=== PATIENT | male | born 1980 | race Two or more races ===

== ENCOUNTER 2024-10-05 17:52 | Inpatient (IN) | payer MEDICAID, SELFPAY ==
[2024-10-05] VITALS (8 sets, daily range): BP systolic 161–200; BP diastolic 89–122; PULSE 49–92; RESP 14–20; TEMP 35.9–36.6; O2SAT 80–100; BMI 25.0
--- NOTE | 2024-10-05 18:15 | EDNOTE_ITS ---
ED Abdominal Pain RME/HPI General Chief Complaint: Abdominal Pain Stated complaint: ABD PAIN Time seen by provider: 10/05/24 18:08 Arrival date/time: 10/05/24 17:52 Source: patient Mode of arrival: ambulatory Limitations: no limitations RME / HPI RME / HPI narrative: Dr. Anders?s Main ED Evaluation: A 44-year-old male with a history of seizures, atherosclerotic heart disease, myocardial infarction (ID), and asthma presents to the emergency department with complaints of right upper quadrant pain. The pain does not radiate to his back and worsens when he lies flat. The patient reports experiencing similar symptoms about a year ago and was told he had gallstones at that time. He denies any trauma or history of alcohol abuse. He describes the current pain as severe, rating it 9 out of 10. Related Data Previous Rx's ?Medication ?Instructions ?Recorded prednisone 50 mg tablet 50 mg PO QDAY #5 tabs Allergies Allergy/AdvReac Type Severity Reaction Status Date / Time Iodinated Contrast Media Allergy Severe Difficulty Verified 10/05/24 21:48 Breathing Review of Systems Review of Systems Systems Reviewed: All systems reviewed, normal except as documented Past Medical History Past Medical History NEUROLOGIC: Positive Seizures CARDIAC: Positive Cardiac Disorders, Myocardial Infarction and Atherosclerotic Heart Disease (Pt. has stents.); Negative Congestive Heart Failure RESPIRATORY: Positive Asthma; Negative Chronic Obstructive Pulmonary Disease (COPD) GENITOURINARY: Negative Renal Disease ENDOCRINE: Negative Diabetes Mellitus Type 1 or Diabetes Mellitus Type 2 Social History SMOKING STATUS: Never smoker ED Exam Narrative Physical exam: GENERAL APPEARANCE: alert and oriented x 4, well-developed, well-nourished, in moderate to severe pain distress VITALS: All vitals were reviewed and the pulse ox is 98% on room air, which is normal according to my interpretation. HEENT: Normocephalic, atraumatic; pupils equal, round, reactive to light; EOMI; mucous membranes pink, moist; oropharynx clear NECK: Supple LUNGS: CTABL; no wheezes, no rales, no rhonchi HEART: Regular rate, regular rhythm; normal S1, S2; no murmurs ABDOMEN: non distended; normal BS; soft, exquisitely tender on palpation of his upper abdomen with guarding, rebound and some rigidity; no masses, no organomegaly, no hernia BACK: no CVA tenderness EXTREMITIES: atraumatic; no edema NEUROLOGIC: awake; alert and oriented x4; cranial nerves II-XII grossly intact; no focal sensory or motor deficits PSYCHIATRIC: appropriate mood and affect SKIN: warm, dry, normal color; no rashes General Limitations: Present no limitations Course Quality Measures none Orders Category Date Time Status CT Screening NOW Care 10/05/24 21:15 Active Insert IV QSHIFT Care 10/05/24 19:54 Active MRI Screening NOW Care 10/06/24 00:[address] abdomen pelvis wo con Stat Exams 10/05/24 21:46 Completed MR MRCP Stat Exams 10/06/24 Ordered US gall bladder Stat Exams 10/05/24 19:54 Completed Alcohol, Blood Medical Stat Lab 10/05/24 18:48 Completed CBC Stat Lab 10/05/24 18:48 Completed CMP [Comprehensive Metabolic Panel] Stat Lab 10/05/24 18:48 Completed Drug Screen,Urine Stat Lab 10/05/24 19:57 Completed Lipase Stat Lab 10/05/24 18:48 Completed Lipid Panel Stat Lab 10/05/24 18:48 Completed UA [Urinalysis] Stat Lab 10/05/24 19:57 Completed Dextrose 5%-0.45% Ns [D5-1/2Ns] 1,000 ml Med 10/06/24 04:19 Active IV 165 mls/hr HYDROmorphone INJ [Dilaudid Inj] Med 10/05/24 21:15 Discontinued 1 mg IVP PRN HYDROmorphone INJ [Dilaudid Inj] Med 10/05/24 21:15 Active 1 mg IVP Q30MIN PRN Morphine Inj Med 10/05/24 19:55 Discontinued 5 mg IVP X1 ONE Ondansetron Inj [Zofran Inj] Med 10/05/24 19:55 Discontinued 4 mg IV X1 ONE Piper/Ez 4.5 gm [Zosyn] 100 ml Med 10/05/24 21:14 Discontinued IV X1 Piper/Tazo 3.375 gm [Zosyn] Med 10/05/24 21:31 Discontinued 3.375 gm in 50 ml IV X1 Sodium Chloride 0.9% 1000 ml [Ns] 1,000 ml Med 10/05/24 19:55 Discontinued IV 500 mls/hr Sodium Chloride 0.9% 1000 ml [Ns] 1,000 ml Med 10/05/24 21:08 Discontinued IV 999 mls/hr Sodium Chloride 0.9% 1000 ml [Ns] 1,000 ml Med 10/05/24 21:10 Discontinued IV 999 mls/hr hydrALAZINE INJ [Apresoline Inj] Med 10/05/24 22:22 Discontinued 10 mg IV X1 ONE Vital Signs Vital signs: Vital Signs Temperature 97.8 F 10/05/24 18:15 Pulse Rate 65 10/05/24 18:15 Respiratory Rate 18 10/05/24 18:15 Blood Pressure 162/89 H 10/05/24 18:15 Pulse Oximetry (%) 98 10/05/24 18:15 Oxygen Delivery Method Room Air 10/05/24 18:15 Abdominal Pain MDM MDM Narrative MDM Narrative:: Scribe Attestation: I, Pool Galan, am scribing for and in the presence of Dr. Anders. Provider Notation: Although this document has been carefully reviewed, there may still be some phonetic and other typographical errors. These errors are purely grammatical due to imperfections in the software program and should not be construed in any way to compromise the substance of the patient's medical care during this visit. Patient data External records reviewed:: [facility] previous records Clinical information provided by:: patient Social determinants that could affect healthcare access:: none Patient has the following chronic illnesses:: See PMH How is presenting disease/condition affected by chronic disease/condition?: uneffected by Evaluation data The following diagnostics were reviewed and interpreted by me:: lab results and radiology exam(s) Lab and/or radiology exams considered but not ordered:: None Interpretation Summary: I personally reviewed the radiology data and agree with the radiologist's interpretation. Examination: Abdomen sonogram, Limited Date and time of exam: October 05, 20244 hours INDICATIONS: Onset severe epigastric pain and nausea today Technique: Real-time allen scale transabdominal sonographic images of the upper abdomen obtained. Findings: Multiple gallstones Gallbladder wall 0.3 cm no edema Common bile duct 0.2 cm Pancreatic head 3.1 cm Liver 13.6 cm fatty infiltration no focal liver lesions Normal hepatopedal portal venous flow. Patent IVC. IMPRESSION: Cholelithiasis, negative for cholecystitis Dictated By: Brennan Eubanks MD Medications / Prescriptions Medications or Prescriptions considered but not ordered:: None Medication administrations:: Medication Administration History Hydromorphone HCl (Hydromorphone Inj 2 Mg/Ml Vial) 1 mg IVP Q30MIN PRN PRN Reason: PAIN Stop: 10/06/24 21:14 Last Admin: 10/06/24 05:10 Dose: 1 mg Documented By: Admin: 10/05/24 23:49 Dose: 1 mg Documented By: Admin: 10/05/24 23:12 Dose: 1 mg Documented By: Admin: 10/05/24 21:28 Dose: 1 mg Documented By: KATHERYN Dextrose/Sodium Chloride (D5-1/2ns) 1,000 mls @ 165 mls/hr IV .Q6H4M BRITTANY Stop: 11/05/24 04:18 Last Admin: 10/06/24 05:00 Dose: 165 mls/hr Documented By: ERIN Discontinued Medications Hydralazine HCl (Hydralazine Inj 20 Mg/Ml Vial) 10 mg IV X1 ONE Stop: 10/05/24 22:23 Last Admin: 10/05/24 22:28 Dose: 10 mg Documented By: KATHERYN Hydromorphone HCl (Hydromorphone Inj 2 Mg/Ml Vial) 1 mg IVP PRN BRITTANY Stop: 10/10/24 21:14 Sodium Chloride (Ns) 1,000 mls @ 500 mls/hr IV .Q2H ONE Stop: 10/05/24 21:54 Last Infusion: 10/05/24 22:33 Dose: Infused Documented By: Admin: 10/05/24 20:19 Dose: 500 mls/hr Documented By: Sodium Chloride (Ns) 1,000 mls @ 999 mls/hr IV .Q1H1M ONE Stop: 10/05/24 22:08 Last Infusion: 10/05/24 22:37 Dose: Infused Documented By: Admin: 10/05/24 21:14 Dose: 999 mls/hr Documented By: Sodium Chloride (Ns) 1,000 mls @ 999 mls/hr IV .Q1H1M ONE Stop: 10/05/24 22:10 Last Infusion: 10/05/24 23:57 Dose: Infused Documented By: Admin: 10/05/24 21:14 Dose: 999 mls/hr Documented By: Piperacillin/Tazobactam/Dextrose (Zosyn) 100 mls @ 200 mls/hr IV X1 ONE Stop: 10/05/24 21:43 Last Admin: 10/05/24 21:34 Dose: Not Given Documented By: Non-Admin Reason: Cancelled by Provider Piperacillin/Tazobactam/Dextrose (Zosyn) 3.375 gm in 50 mls @ 100 mls/hr IV X1 ONE Stop: 10/05/24 22:00 Last Infusion: 10/05/24 22:17 Dose: Infused Documented By: Admin: 10/05/24 21:33 Dose: 100 mls/hr Documented By: KATHERYN Morphine Sulfate (Morphine Sulf Inj 10 Mg/Ml Vial) 5 mg IVP X1 ONE Stop: 10/05/24 19:56 Last Admin: 10/05/24 20:16 Dose: 5 mg Documented By: KATHERYN Ondansetron HCl (Ondansetron Inj 2 Mg/Ml Inj 2 Ml) 4 mg IV X1 ONE; Protocol Stop: 10/05/24 19:56 Last Admin: 10/05/24 20:17 Dose: 4 mg Documented By: As above Consultations Consultation(s) initiated? (list below): Yes Consultation #1 (Physician, Specialty, Details): Discussed case with [the resident physician, attending Dr. Mederos] from Hospitalist service regarding admission. Discussed patients ED course, exam findings, labs, and radiology results.Requests a MRCP in the morning. Time: 00:00 Diagnosis Differential diagnosis abdominal pain: other (Gallstone pancreatitis, Pancreatitis, Cholecystitis, Choledocholithiasis, Gallstone ileus) Most likely diagnosis given after review of the tests above:: Methampetamine intoxication, Acute pancreatitis, likely gallstone pancreatitis Admission Indicated Admission indicated?: not indicated Admission Request Was there a request for admission?: No Disposition Plan Disposition Plan: other (specify) (Signed out to Dr. Salguero pending MRCP in the morning.) Discharge Plan Prescriptions/Referrals Prescriptions/Med Rec: No Action prednisone 50 mg tablet 50 mg PO QDAY Qty: 5 0RF Referrals: No Primary/Family,Physician [Primary Care Provider] - In 1 week Problem List Clinical Impression: Pancreatitis Patient/Caregiver Discharge Instructions Print Language: Frisian
--- NOTE | 2024-10-05 18:32 | EDRME_ITS ---
Rapid Medical Screening Exam [facility] Arrival date/time: 10/05/24 17:52 44M with history of drug use (though patient states he's had an MN before but is not on any meds because he ran out) presents to ED with several hours of epigastric pain. Dr. Anders?s Main ED Evaluation: Time Seen by Provider: 10/05/24 18:08 Vital signs: Vital Signs Temperature 97.8 F 10/05/24 18:15 Pulse Rate 65 10/05/24 18:15 Respiratory Rate 18 10/05/24 18:15 Blood Pressure 162/89 H 10/05/24 18:15 Pulse Oximetry (%) 98 10/05/24 18:15 Oxygen Delivery Method Room Air 10/05/24 18:15 [facility] Narrative: Dr. Anders?s Main ED Evaluation:
[2024-10-05 19:01] LABS: Basophils # (Auto) 0.1 Thou/mm3 (0.0-0.2); Basophils % (Auto) 1 % (0-2.5); Eosinophils # (Auto) 0.3 Thou/mm3 (0.0-0.5); Eosinophils % (Auto) 2 % (0-10); Hematocrit 52.2 % (41.0-53.0); Hemoglobin 17.8 g/dL (13.5-16.0); Immature Granulocytes % (Auto) 0 % (0-0); Immature Granulocytes Auto 0.06 Thou/mm3 (0.00-0.00); Lymphocytes # (Auto) 2.1 Thou/mm3 (1.0-4.8); Lymphocytes % (Auto) 13 % (10-50); Mean Corpuscular HGB Conc 34.1 g/dl (31.0-37.0); Mean Corpuscular Volume 85 fL (80-100); Monocytes # (Auto) 0.9 Thou/mm3 (0.0-0.8); Monocytes % (Auto) 5 % (0-12); Neutrophils # (Auto) 13.1 Thou/mm3 (1.8-7.7); Neutrophils % (Auto) 79 % (37-80); Nucleated Red Blood Cell % 0 /100 WBC (0); Platelet Count 335 Thou/mm3 (140-440); Red Blood Count 6.13 Miln/mm3 (4.50-5.90); White Blood Count 16.5 Thou/mm3 (3.8-10.6)
[2024-10-05 19:36] LABS: Alanine Aminotransferase 76 U/L (10-49); Albumin, Serum 4.7 gm/dL (3.5-5.0); Albumin/Globulin Ratio 1.5 (1.2-2.2); Alcohol, Blood Medical < 3.0 mg/dL (0-10.0); Alkaline Phosphatase 84 U/L (46-116); Anion Gap 7 (7-16); Aspartate Amino Transferase 131 U/L (0-34); BUN/Creatinine Ratio 14 Ratio (12-20); Bilirubin,Total 1.3 mg/dL (0.3-1.2); Blood Urea Nitrogen 14 mg/dL (9-23); Calcium 10.3 mg/dL (8.3-10.6); Calcium (Corrected) 10.3 mg/dL (8.5-10.1); Carbon Dioxide 29.1 mMol/L (20.0-31.0); Chloride 103 mMol/L (98-107); Estimated Creatinine Clearance 83.3 mL/min (>60); Globulin 3.2 gm/dL (2.3-3.5); Glucose 119 mg/dL (74-106); Lipase > 3500 U/L (12-53); Osmolality,Calculated 279 (275-295); Potassium 4.2 mMol/L (3.4-5.1); Sodium 139 mMol/L (136-145); Total Protein 7.9 gm/dL (5.7-8.2); eGFR > 60 See Note
--- NOTE | 2024-10-05 19:54 | XR_ITS ---
Examination: Abdomen sonogram, Limited Date and time of exam: October 05, 2024 2054 hours INDICATIONS: Onset severe epigastric pain and nausea today Technique: Real-time allen scale transabdominal sonographic images of the upper abdomen obtained. Findings: Multiple gallstones Gallbladder wall 0.3 cm no edema Common bile duct 0.2 cm Pancreatic head 3.1 cm Liver 13.6 cm fatty infiltration no focal liver lesions Normal hepatopedal portal venous flow. Patent IVC. IMPRESSION: Cholelithiasis, negative for cholecystitis
[2024-10-05] MEDS: MORPHINE SULF INJ 10 MG/ML VIAL 5 MG IVP (20:16)
[2024-10-05] MEDS: ONDANSETRON INJ 2 MG/ML INJ 2 ML 4 MG IV (20:17)
[2024-10-05] MEDS: SODIUM CHLORIDE 0.9% 1000 ML 1,000 ML 500 ML IV (20:19)
[2024-10-05 20:33] LABS: Cardiac Risk Estimate 4.7 RATIO (4.0-6.7); Cholesterol 261 mg/dL (132-200); HDL Cholesterol 56 mg/dL (40-60); LDL Cholesterol,Calculated 173 mg/dL (0-130); Triglycerides 159 mg/dL (30-150)
[2024-10-05 20:35] LABS: Collection Type, Urine Clean Catch; RBC,Urine 0 /hpf (0-3); WBC,Urine 0 /hpf (0-5)
[2024-10-05 21:05] LABS: Bacteria,Urine Rare; Bilirubin,Urine Negative (Negative); Blood,Urine Negative (Negative); Clarity,Urine Turbid (Clear/Hazy); Color,Urine Yellow (Lt Yel-Yel); Glucose, Urine Negative (Negative); Ketones,Urine Negative (Negative); Leukocyte Esterase,Urine Positive (Negative); Nitrite,Urine Negative (Negative); PH,Urine 6.5 (5.0-7.0); Protein,Urine Trace (Neg - Trace); Specific Gravity,Urine 1.027 (1.001-1.035); Squamous Epithelial Cell,Urine < 1 /hpf (0-5)
[2024-10-05 21:09] LABS: Amphetamine/Methamp Scrn,U Positive (Negative); Barbiturate Screen,Urine Negative (Negative); Benzodiazepines Screen,Urine Negative (Negative); Benzoylecgonine Screen, Ur Negative (Negative); Fentanyl Screen,Urine Negative (Negative); Opiate Screen,Urine Negative (Negative); THC Screen,Urine Positive (Negative)
[2024-10-05] MEDS: SODIUM CHLORIDE 0.9% 1000 ML 1,000 ML 999 ML IV ×2 (21:14)
[2024-10-05] MEDS: HYDROmorphone INJ 2 MG/ML VIAL 1 MG IVP ×3 (21:28→23:49)
[2024-10-05] MEDS: PIPER/TAZO 3.375 GM 3.375 GM/50 ML BAG IV (21:33)
--- NOTE | 2024-10-05 21:46 | XR_ITS ---
Examination: CT abdomen and pelvis without contrast. Coronal 3-D reconstructions. Sagittal 2-D reconstructions. Date and time of exam:October 05, 2024 at 0959 hours INDICATIONS: Transabdominal pain beginning 3 days ago CTDI: vol (mGy): 6.53 DLP: (mGycm): 382 Technique: Axial images of the abdomen have been obtained, 3 mm slice thickness Intravenous contrast material has not been administered. Low dose protocols were performed. One or more of the following dose reduction techniques were used; automated exposure control, adjustment of the mA and/or KV according to patient size, use of iterative reconstruction technique. Findings: No focal liver lesions Gallstones Spleen is not enlarged Diffuse edema surrounding the pancreas No renal or ureteral calculi, no hydronephrosis Aorta normal size No bowel obstruction Normal appendix No diverticulitis Urinary bladder are intact No prostatomegaly IMPRESSION: Cholelithiasis Severe acute pancreatitis, no pseudocyst
[2024-10-05] MEDS: hydrALAZINE INJ 20 MG/ML VIAL 10 MG IV (22:28)
[2024-10-06] VITALS (11 sets, daily range): BP systolic 129–169; BP diastolic 98–116; PULSE 68–102; RESP 14–19; TEMP 36.3–37.2; O2SAT 94–98; BMI 25.0
--- NOTE | 2024-10-06 04:50 | PC.NURSE ---
Dr. Anders in to talk to pt with regards to plan of care.
[2024-10-06] MEDS: DEXTROSE 5%-0.45% NS 1,000 ML 165 ML IV (05:00)
[2024-10-06] MEDS: HYDROmorphone INJ 2 MG/ML VIAL 1 MG IVP ×4 (05:10→16:15)
--- NOTE | 2024-10-06 08:54 | PC.NURSE ---
Attempted to complete MRI screening form when noticed piercing to left side of face under eye, patient states he is unable to remove piercing. Dr. Salguero made aware and discussed with patient options. Dr. Salguero with contact Dr. Valenzuela for possible admission due to not being able to complete MRI. Patient made aware of plan of care.
--- NOTE | 2024-10-06 10:03 | PC.NURSE ---
Patient sleeping at this time. Family remains at bedside. Will continue to monitor
--- NOTE | 2024-10-06 10:39 | EDNOTE_ITS ---
Emergency Room Addendum Addendum Narrative: 0600 care assumed by previous shift provider. Past medical, surgical, social and family history reviewed. Vitals and home medications reviewed. Results and treatment plan discussed. I will assume the care of the patient at this time and will follow the patient, pending final disposition. On my encounter patient notes diffuse upper abdominal pain that has improved significantly with treatment overnight. We reviewed his findings and indication for an MRCP given his elevated lipase levels. He does have several piercings and reviewed the piercing that he has over his left zygoma. There is a subcutaneous anchor where he would remain even if the outer stud was removed. This is approximately 2 cm inferior lateral to his left eye. Would recommend removal of the inner anchor prior to any MRCP as the burning that would come from magnetic's is also very close to his high and dangerous. He is nontoxic- appearing, relatively comfortable and sleeping on my encounter. I will review the case with GI specialty the benefits of removing the anchor versus observing with laboratory trending prior to the decision to do an MRI. 0800: Gastroenterology, Dr. Valenzuela, case was discussed at length, it feels given his symptoms and the laboratory findings, bili obstruction appears to be improving and he has more of an issue with pancreatitis. This is likely secondary to the passage of the stone as he is well-appearing. He recommends observing and trending laboratory overnight before deciding as to whether or not he will need an MRCP/ERCP at that point definitive management of his piercing anchor can be managed. If ERCP is needed, this can be done by Dr. Alexander as an inpatient. 0845: Hospitalist service, Dr. Truong, we reviewed case at length and they will review their raising concern as the patient has not had an MRCP done prior to admission. Patient is admitted to hospital service for further admission, trending of liver enzymes prior to decision as to whether or not he will require an MRCP/ERCP.
[2024-10-06 11:35] LABS: Basophils % (Auto) 0 % (0-2.5); Eosinophils % (Auto) 0 % (0-10); Hematocrit 50.1 % (41.0-53.0); Immature Granulocytes % (Auto) 1 % (0-0); Immature Granulocytes Auto 0.08 Thou/mm3 (0.00-0.00); Lymphocytes # (Auto) 1.1 Thou/mm3 (1.0-4.8); Lymphocytes % (Auto) 6 % (10-50); Mean Corpuscular HGB Conc 33.9 g/dl (31.0-37.0); Mean Corpuscular Hemoglobin 28.7 pg (25.0-35.0); Mean Corpuscular Volume 85 fL (80-100); Monocytes # (Auto) 0.9 Thou/mm3 (0.0-0.8); Monocytes % (Auto) 5 % (0-12); Neutrophils % (Auto) 88 % (37-80); Nucleated Red Blood Cell % 0 /100 WBC (0); Platelet Count 333 Thou/mm3 (140-440); RDW Standard Deviation 38.3 fL (35.1-43.9); Red Blood Count 5.93 Miln/mm3 (4.50-5.90); White Blood Count 17.1 Thou/mm3 (3.8-10.6)
[2024-10-06 12:03] LABS: Alanine Aminotransferase 290 U/L (10-49); Albumin, Serum 4.2 gm/dL (3.5-5.0); Albumin/Globulin Ratio 1.5 (1.2-2.2); Alkaline Phosphatase 98 U/L (46-116); Anion Gap 6 (7-16); Aspartate Amino Transferase 196 U/L (0-34); BUN/Creatinine Ratio 10 Ratio (12-20); Bilirubin,Total 1.8 mg/dL (0.3-1.2); Blood Urea Nitrogen 9 mg/dL (9-23); Calcium 8.9 mg/dL (8.3-10.6); Calcium (Corrected) 8.9 mg/dL (8.5-10.1); Carbon Dioxide 27.4 mMol/L (20.0-31.0); Chloride 103 mMol/L (98-107); Creatinine (Component) 0.9 mg/dL (0.6-1.3); Estimated Creatinine Clearance 92.5 mL/min (>60); Globulin 2.8 gm/dL (2.3-3.5); Glucose 109 mg/dL (74-106); Osmolality,Calculated 271 (275-295); Potassium 4.9 mMol/L (3.4-5.1); Sodium 136 mMol/L (136-145); eGFR > 60 See Note
[2024-10-06] MEDS: cefTRIAXone/D5w 1gm IV premix 50 ML IV (13:24)
[2024-10-06] MEDS: PANTOPRAZOLE INJ 40 MG VIAL IVP (13:24)
[2024-10-06] MEDS: SODIUM CHLORIDE 0.9% 1000 ML 1,000 ML 200 ML IV (13:54)
--- NOTE | 2024-10-06 15:49 | ESHP_ITS ---
<Statement entered by Alexx Mansfield MD - 10/12/24 15:57> I reviewed above note and agree with findings and plans. I have also personally examined the patient with medicine team and went over assessment and plan with medical team including consultants intern and resident physician. Documentation for date of: 10/06/24 HPI History of Present Illness History of present illness: The patient is a 44-year-old male with a past medical history of myocardial infarction presenting to the ED on 10/05/2024 with abdominal pain. Per the patient, having pain for about 2 days prior to presentation, located in the epigastric and right upper quadrant does not radiate to the back but worsens when he is in supine position. He rates the pain 9 on a severity scale of 10. He denies fever but does endorse nausea constipation or diarrhea. He reports that he has a good appetite and that he has been in pain and has been able to tolerate a diet. Patient reports that he has had a similar attack of pain about a year ago after which she was told that he had gallstones. Pain is not associated with meal intake and he had no abdominal trauma. ED course: In the ED, patient was noted to be in severe pain however afebrile tachycardic. Labs were significant for leukocytosis with WBC of 16.5 hypercalcemia of 10.3 T. bili of 1.3 (down from 2.9 about 3 months ago) transaminitis, triglycerides of 159 and lipase of greater than 3500. A gallbladder ultrasound was done which showed cholelithiasis was negative for cholecystitis and CBD of 0.[address] abdomen pelvis showed severe acute pancreatitis with no pseudocyst. In the ED, GI Dr. Valenzuela was consulted and recommended for the patient to be admitted for management of acute pancreatitis as it was unlikely to be biliary tract obstruction but if there was, Dr. Alexander will be available for an ERCP to be done as the patient could not have an MRCP due to piercings. Repeat labs prior to admission showed uptrending WBC as well as bilirubin and transaminases. The patient received a total of 3 L of fluids in the ED as well as pain medication and IV Zosyn. PMHx-[place], 1 episode of seizure PSHx-none Social history - social drinker, non-smoker Review of Systems Review of Systems Narrative Review of Systems: GENERAL: Denies fevers/chills or diaphoresis. HEENT: Denies headache or visual/hearing changes. Denies nasal discharge. NEURO: Denies unusual weakness or difficulty speaking. CARDIO: Denies chest pain or palpitations. PULM: Denies SOB, coughing, or wheezing. GI: Admits abdominal pain and nausea. Denies vomiting, constipation or diarrhea. URO: Denies burning/itching/pain/urinary changes. MSK/EXT/SKIN: Denies joint/skeletal/muscle pain, issues/changes in upper or lower extremities, itchiness, or superficial pain. PSYCH: Cooperative, pleasant mood & affect. Past Medical History Past Medical History NEUROLOGIC: Positive Seizures CARDIAC: Positive Cardiac Disorders, Myocardial Infarction and Atherosclerotic Heart Disease (Pt. 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 Eyes open, symmetrical, & clear CARDIO: No chest pain on palpation. Heart RRR, no obvious murmurs PULM: No noted coughing/dyspnea. Lungs CTA B/L GI: Abdomen soft, nondistended, tenderness to palpation worse in the epigastric region, mild RUQ. URO/GILL BOX TENDER:: No further abnormalities noted. SKIN/MSK/EXT: No wounds/rashes/edema/amputations, no pain on palpation. Pedal pulses present B/L Results: Labs 10/06/24 11:20 10/06/24 11:20 Labs: Short CBC 10/05/24 10/06/24 Range/Units 18:48 11:20 WBC 16.5 H 17.1 H (3.8-10.6) Thou/mm3 Hgb 17.8 H* 17.0 H (13.5-16.0) g/dL Hct 52.2 50.1 (41.0-53.0) % Plt Count 335 333 (140-440) Thou/mm3 [facility] 10/05/24 10/06/24 18:48 11:20 Sodium 139 136 Potassium 4.2 4.9 D Chloride 103 103 Carbon Dioxide 29.1 27.4 BUN 14 9 Creatinine 1.0 0.9 Glucose 119 H 109 H Calcium 10.3 8.9 Liver Function 10/05/24 10/06/24 Range/Units 18:48 11:20 Total Bilirubin 1.3 H 1.8 H D (0.3-1.2) mg/dL AST 131 H 196 H (0-34) U/L ALT 76 H 290 H (10-49) U/L Alkaline Phosphatase 84 98 (46-116) U/L Albumin 4.7 4.2 D (3.5-5.0) gm/dL Urine 10/05/24 Range/Units 19:57 Urine Color Yellow (Lt Yel-Yel) Urine Clarity Turbid A (Clear/Hazy) Urine pH 6.5 (5.0-7.0) Ur Specific [place] 1.027 (1.001-1.035) Urine Protein Trace (Neg - Trace) Urine Glucose (UA) Negative (Negative) Quality Measures Quality Measures none Medications Home Medications and Allergies Allergies Allergy/AdvReac Type Severity Reaction Status Date / Time Iodinated Contrast Media Allergy Severe Difficulty Verified 10/05/24 21:48 Breathing Visit Medications Acetaminophen (Acetaminophen 325 Mg Tablet) 650 mg PO Q6H PRN PRN Reason: Pain 1-3 or Fever >100.3 Stop: 11/05/24 12:26 Hydrocodone Bitart/Acetaminophen (Hydrocodone/Apap 5/325 Tablet) 1 tab PO Q6HR PRN PRN Reason: Pain 4-6 Stop: 10/11/24 12:38 Heparin Sodium (Porcine) (Heparin Sod Inj 5000 Unit/Ml Vial) 5,000 unit SC Q12HR BRITTANY Stop: 10/20/24 20:59 Sodium Chloride (Ns) 1,000 mls @ 200 mls/hr IV .Q5H BRITTANY Stop: 11/05/24 12:29 Last Admin: 10/06/24 13:54 Dose: 200 mls/hr Ceftriaxone Sodium/Dextrose (Rocephin/D5w 1gm Iv Premix) 50 mls @ 100 mls/hr IV QDAY BRITTANY Stop: 10/13/24 12:37 Last Infusion: 10/06/24 13:59 Dose: Infused Morphine Sulfate (Morphine Sulf Inj 10 Mg/Ml Vial) 2 mg IVP Q6HR PRN PRN Reason: PAIN SCALE 7-10 (Severe Ondansetron HCl (Ondansetron Inj 2 Mg/Ml Inj 2 Ml) 4 mg IV Q6H PRN; Protocol PRN Reason: NAUSEA OR VOMITING Stop: 11/05/24 12:26 Pantoprazole Sodium (Pantoprazole Inj 40 Mg Vial) 40 mg IVP QDAY [facility] Stop: 11/05/24 12:44 Last Admin: 10/06/24 13:24 Dose: 40 mg Sennosides (Senna Tablet) 1 tab PO QDAY [facility]; Protocol Stop: 11/06/24 08:59 Discontinued Medications Heparin Sodium (Porcine) (Heparin Sod Inj 5000 Unit/Ml Vial) 5,000 unit SC Q8HR [facility] Stop: 10/20/24 13:59 Hydralazine HCl (Hydralazine Inj 20 Mg/Ml Vial) 10 mg IV X1 ONE Stop: 10/05/24 22:23 Last Admin: 10/05/24 22:28 Dose: 10 mg Hydromorphone HCl (Hydromorphone Inj 2 Mg/Ml Vial) 1 mg IVP PRN BRITTANY Stop: 10/10/24 21:14 Last Admin: 10/06/24 10:30 Dose: 1 mg Hydromorphone HCl (Hydromorphone Inj 2 Mg/Ml Vial) 1 mg IVP Q30MIN PRN PRN Reason: PAIN Stop: 10/06/24 21:14 Last Admin: 10/06/24 06:18 Dose: 1 mg Hydromorphone HCl (Hydromorphone Inj 2 Mg/Ml Vial) 1 mg IVP X1 ONE Stop: 10/06/24 15:12 Sodium Chloride (Ns) 1,000 mls @ 500 mls/hr IV .Q2H ONE Stop: 10/05/24 21:54 Last Infusion: 10/05/24 22:33 Dose: Infused Sodium Chloride (Ns) 1,000 mls @ 999 mls/hr IV .Q1H1M ONE Stop: 10/05/24 22:08 Last Infusion: 10/05/24 22:37 Dose: Infused Sodium Chloride (Ns) 1,000 mls @ 999 mls/hr IV .Q1H1M ONE Stop: 10/05/24 22:10 Last Infusion: 10/05/24 23:57 Dose: Infused Piperacillin/Tazobactam/Dextrose (Zosyn) 100 mls @ 200 mls/hr IV X1 ONE Stop: 10/05/24 21:43 Last Admin: 10/05/24 21:34 Dose: Not Given Piperacillin/Tazobactam/Dextrose (Zosyn) 3.375 gm in 50 mls @ 100 mls/hr IV X1 ONE Stop: 10/05/24 22:00 Last Infusion: 10/05/24 22:17 Dose: Infused Dextrose/Sodium Chloride (D5-1/2ns) 1,000 mls @ 165 mls/hr IV .Q6H4M BRITTANY Stop: 11/05/24 04:18 Last Infusion: 10/06/24 10:29 Dose: Infused Morphine Sulfate (Morphine Sulf Inj 10 Mg/Ml Vial) 5 mg IVP X1 ONE Stop: 10/05/24 19:56 Last Admin: 10/05/24 20:16 Dose: 5 mg Ondansetron HCl (Ondansetron Inj 2 Mg/Ml Inj 2 Ml) 4 mg IV X1 ONE; Protocol Stop: 10/05/24 19:56 Last Admin: 10/05/24 20:17 Dose: 4 mg Assessment & Plan Assessment Summary: The patient is a 44-year-old female with a past medical history of myocardial infarction and gallstones presented to the ED on 10/05/2024 with plaints of abdominal pain. He has been admitted for management of acute pancreatitis. #Acute gallstone pancreatitis #Cholelithiasis #Transaminitis The patient presented with a 2-day history of abdominal pain located in the epigastric and right upper quadrant, rated as a 9/10 in severity, nonradiating to the back but a little worse when lying in supine position. He denies any association with meals any new medications or any trauma to the abdominal region. Patient also denies fever, but endorses nausea, no vomiting diarrhea or constipation. In the ED, he was afebrile but tachycardic. Labs showed hyperbilirubinemia of 1.3, down trended from 3 in the last 3 months as well as leukocytosis with WBC of 16 elevated transaminases but normal ALP and lipase >3500. CT abdomen showed severe acute pancreatitis and no pseudocyst. Initial plan was for an MRCP to be acquired breast patient has piercings is impossible to do and ERCP was considered. Discussed with ED doctor and GI Dr. Valenzuela extensively, recommends to admit the patient for acute pancreatitis and the patient should require ERCP, Dr. Alexander will be available for procedure. Plan: -Clear liquid diet as patient can tolerate -IV fluids NS at 200 cc/h -IV ceftriaxone -Pain management with Tylenol, [place] and morphine -GI consulted in ED, appreciate recommendations Health maintenance: Dispo: MedSurg Diet: Clear liquid GI: Pantoprazole DVT: SC Heparin Lines: Peripheral PT: Not ordered Code: Full Case was discussed with attending physician, Dr Shyla Truong MD PGY-1
--- NOTE | 2024-10-06 16:00 | PD.IMCONS ---
HPI Data of Consult Requesting Physician: Alexx Mansfield MD Primary Care Provider: Physician No Primary/Family Consult Narrative Reason for consult: Severe abdominal pain elevated lipase greater than 3500 abnormal LFTs History of present illness: 44 years old male comes in for evaluation to the emergency room with severe abdominal pain Lipase greater than 3500 Total bilirubin 1.3 AST ALT 131 and 76 and alk phos of 84 Gallbladder ultrasound shows multiple stones in the gallbladder CBD is [address] scan of the abdomen pelvis done with contrast shows cholelithiasis and diffuse edema of the pancreas no dilatation of the common bile duct MRCP could not be done because of metal's as a part of his living style cc:: cc: Alexx Mansfield MD Review of Systems Review of Systems Systems Reviewed: All systems reviewed, normal except as documented Past Medical History Surgical History OTHER SURGICAL HX: As in the history of present illness Meds Home Medications and Allergies Allergies Allergy/AdvReac Type Severity Reaction Status Date / Time Iodinated Contrast Media Allergy Severe Difficulty Verified 10/05/24 21:48 Breathing Exam Vital Signs Temp Pulse Resp BP Pulse Ox O2 Del Method O2 Flow Rate 97.8 F 88 14 148/98 H 96 Room Air 2 10/06/24 13:09 10/06/24 15:10 10/06/24 15:10 10/06/24 15:10 10/06/24 15:10 10/06/24 15:10 10/05/24 22:34 Constitutional Comments: Alert oriented and in pain Routine Respiratory Exam Comments: Normal to auscultation Routine Abdominal Exam Comments: Midepigastric right upper quadrant tenderness Results Labs 10/06/24 11:20 10/06/24 11:20 Labs: Short CBC 10/05/24 10/06/24 Range/Units 18:48 11:20 WBC 16.5 H 17.1 H (3.8-10.6) Thou/mm3 Hgb 17.8 H* 17.0 H (13.5-16.0) g/dL Hct 52.2 50.1 (41.0-53.0) % Plt Count 335 333 (140-440) Thou/mm3 BMP 10/05/24 10/06/24 18:48 11:20 Sodium 139 136 Potassium 4.2 4.9 D Chloride 103 103 Carbon Dioxide 29.1 27.4 BUN 14 9 Creatinine 1.0 0.9 Glucose 119 H 109 H Calcium 10.3 8.9 Liver Function 10/05/24 10/06/24 Range/Units 18:48 11:20 Total Bilirubin 1.3 H 1.8 H D (0.3-1.2) mg/dL AST 131 H 196 H (0-34) U/L ALT 76 H 290 H (10-49) U/L Alkaline Phosphatase 84 98 (46-116) U/L Albumin 4.7 4.2 D (3.5-5.0) gm/dL Urine 10/05/24 Range/Units 19:57 Urine Color Yellow (Lt Yel-Yel) Urine Clarity Turbid A (Clear/Hazy) Urine pH 6.5 (5.0-7.0) Ur Specific [place] 1.027 (1.001-1.035) Urine Protein Trace (Neg - Trace) Urine Glucose (UA) Negative (Negative) Assessment and Plan Additional Assessment & Plan Additional Plan: # Acute biliary pancreatitis # No evidence at the moment of choledocholithiasis # Abnormal LFTs improving and most likely due to the edema of the head of the pancreas and not choledocholithiasis as a CBD is normal sized Plan Admit the patient as an inpatient Surgical consultation for once the pancreatitis is decompressed and labs normalize Laparoscopic versus open cholecystectomy with intraoperative cholangiogram If the cholangiogram is positive we can always do an postoperative ERCP and I will speak to Dr. Alexander about that Patient does not need a preoperative ERCP for laparoscopic versus open cholecystectomy in this clinical presentation Effective pain control IV fluids Keep patient n.p.o. Thank you very much for the opportunity to participate in the care of this patient
[2024-10-06] MEDS: MORPHINE SULF INJ 10 MG/ML VIAL 2 MG IVP (20:01)
[2024-10-06] MEDS: ONDANSETRON INJ 2 MG/ML INJ 2 ML 4 MG IV (20:01)
[2024-10-06] MEDS: HEPARIN SOD INJ 5000 UNIT/ML VIAL SC (20:02)
[2024-10-06] MEDS: SODIUM CHLORIDE 0.9% 1000 ML 1,000 ML 250 ML IV (20:07)
[2024-10-06] MEDS: HYDROcodone/APAP 5/325 TABLET 1 TAB PO (21:35)
[2024-10-07] VITALS (7 sets, daily range): BP systolic 151–169; BP diastolic 106–118; PULSE 93–109; RESP 16–18; TEMP 36.1–37.1; O2SAT 94–96
[2024-10-07] MEDS: SODIUM CHLORIDE 0.9% 1000 ML 1,000 ML 250 ML IV ×6 (00:08→23:53)
--- NOTE | 2024-10-07 00:26 | PC.NURSE ---
MD Vasques made aware that pt still having abdominal pain and BP is elevated at 160/106, HR 106, per MD will put pain meds and will carried out.
[2024-10-07] MEDS: MORPHINE SULF INJ 10 MG/ML VIAL 2 MG IVP ×2 (00:31→04:10)
[2024-10-07 06:09] LABS: Basophils # (Auto) 0.1 Thou/mm3 (0.0-0.2); Basophils % (Auto) 0 % (0-2.5); Eosinophils % (Auto) 0 % (0-10); Hematocrit 46.2 % (41.0-53.0); Hemoglobin 15.6 g/dL (13.5-16.0); Immature Granulocytes % (Auto) 1 % (0-0); Lymphocytes # (Auto) 1.1 Thou/mm3 (1.0-4.8); Lymphocytes % (Auto) 6 % (10-50); Mean Corpuscular HGB Conc 33.8 g/dl (31.0-37.0); Mean Corpuscular Hemoglobin 29.2 pg (25.0-35.0); Mean Corpuscular Volume 86 fL (80-100); Monocytes % (Auto) 5 % (0-12); Neutrophils % (Auto) 88 % (37-80); Nucleated Red Blood Cell % 0 /100 WBC (0); Platelet Count 283 Thou/mm3 (140-440); RDW Standard Deviation 38.7 fL (35.1-43.9); Red Blood Count 5.35 Miln/mm3 (4.50-5.90); White Blood Count 19.2 Thou/mm3 (3.8-10.6)
[2024-10-07 06:34] LABS: Alanine Aminotransferase 170 U/L (10-49); Albumin, Serum 3.9 gm/dL (3.5-5.0); Albumin/Globulin Ratio 1.5 (1.2-2.2); Alkaline Phosphatase 98 U/L (46-116); Anion Gap 9 (7-16); Aspartate Amino Transferase 70 U/L (0-34); BUN/Creatinine Ratio 10 Ratio (12-20); Bilirubin,Total 1.7 mg/dL (0.3-1.2); Blood Urea Nitrogen 7 mg/dL (9-23); Calcium 8.3 mg/dL (8.3-10.6); Calcium (Corrected) 8.4 mg/dL (8.5-10.1); Carbon Dioxide 22.3 mMol/L (20.0-31.0); Chloride 105 mMol/L (98-107); Creatinine (Component) 0.7 mg/dL (0.6-1.3); Globulin 2.6 gm/dL (2.3-3.5); Glucose 78 mg/dL (74-106); Magnesium 1.8 mg/dL (1.6-2.6); Osmolality,Calculated 268 (275-295); Phosphorous 1.6 mg/dL (2.4-5.1); Sodium 136 mMol/L (136-145); Total Protein 6.5 gm/dL (5.7-8.2); eGFR > 60 See Note
[2024-10-07] MEDS: HYDROcodone/APAP 5/325 TABLET 1 TAB PO (08:23)
[2024-10-07] MEDS: SENNA TABLET 1 TAB PO (08:23)
[2024-10-07] MEDS: cefTRIAXone/D5w 1gm IV premix 50 ML IV (08:24)
[2024-10-07] MEDS: NAPH,KPH MBDB 1 PACKET (1.5 GM) PO (08:24)
[2024-10-07] MEDS: PANTOPRAZOLE INJ 40 MG VIAL IVP (08:25)
[2024-10-07] MEDS: HEPARIN SOD INJ 5000 UNIT/ML VIAL SC ×2 (08:25→20:43)
[2024-10-07] MEDS: amLODIPine BESYLATE 5 MG TABLET 10 MG PO (11:56)
[2024-10-07] MEDS: MORPHINE SULF INJ 10 MG/ML VIAL 4 MG IVP ×2 (11:57→18:08)
--- NOTE | 2024-10-07 12:46 | ESPR_ITS ---
<Statement entered by Alexx Mansfield MD - 10/12/24 15:57> I reviewed above note and agree with findings and plans. I have also personally examined the patient with medicine team and went over assessment and plan with medical team including undergraduate intern and resident physician. Documentation for date of: 10/07/24 Subjective Subjective Interval history: Patient seen at bedside. Overnight was said to have had elevated blood pressure in 160s, suspected to be due to pain. Examined patient at bedside this morning, he still complains of pain that is worse when he eats even when he drinks water. He also mentions that he has been told that he was hypertensive in the past but has not used any medications. As patient is currently not tolerating oral intake, will make him n.p.o., continue IV fluids at 50 cc/h and optimize pain management. Will also consult surgery for possible cholecystectomy. As blood pressures remained elevated, will start him on antihypertensive amlodipine 10 mg daily. Labs reviewed,-uptrending WBC, downtrending transaminases. Will replete electrolytes accordingly. 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 Eyes open, symmetrical, & clear CARDIO: No chest pain on palpation. Heart RRR, no obvious murmurs PULM: No noted coughing/dyspnea. Lungs CTA B/L GI: Abdomen soft, nondistended, tenderness to palpation worse in the epigastric region, mild RUQ. 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 SKIN/MSK/EXT: No wounds/rashes/edema/amputations, no pain on palpation. Pedal pulses present B/L Objective Labs 10/07/24 04:57 10/07/24 04:57 Labs: Laboratory Results - last 24 hr 10/07/24 04:57 WBC 19.2 H RBC 5.35 Hgb 15.6 Hct 46.2 MCV 86 MCH 29.2 MCHC 33.8 RDW Std Deviation 38.7 Plt Count 283 D Neut % (Auto) 88 H Lymph % (Auto) 6 L [place] % (Auto) 5 Eos % (Auto) 0 Baso % (Auto) 0 Neut # (Auto) 17.0 H Lymph # (Auto) 1.1 [place] # (Auto) 1.0 H Eos # (Auto) 0.0 Baso # (Auto) 0.1 Immature Gran # (Auto) 0.10 H Absolute Nucleated RBC 0.00 Immature Gran % 1 H Nucleated RBC % 0 Sodium 136 Potassium 4.0 D Chloride 105 Carbon Dioxide 22.3 Anion Gap 9 BUN 7 L Creatinine 0.7 Estim Creat Clear Calc 119.0 eGFR > 60 BUN/Creatinine Ratio 10 L Glucose 78 Calculated Osmolality 268 L Calcium 8.3 Corrected Calcium 8.4 L Phosphorus 1.6 L Magnesium 1.8 Total Bilirubin 1.7 H AST 70 H ALT 170 H Alkaline Phosphatase 98 Total Protein 6.5 Albumin 3.9 Globulin 2.6 Albumin/Globulin Ratio 1.5 Quality Measures Quality Measures none Assessment & Plan Assessment Current Active Medications: Generic Name Dose Route Start Last Admin Trade Name Freq PRN Reason Stop Dose Admin Acetaminophen 650 mg 10/06/24 12:27 Acetaminophen 325 Mg Tablet PO 11/05/24 12:26 Q6H PRN Pain 1-3 or Fever >100.3 Hydrocodone Bitart/Acetaminophen 1 tab 10/06/24 12:39 10/07/24 08:23 Hydrocodone/Apap 5/325 Tablet PO 10/11/24 12:38 1 tab Q6HR PRN Administration Pain 4-6 Amlodipine Besylate 10 mg 10/07/24 10:45 10/07/24 11:56 Amlodipine Besylate 5 Mg Tablet PO 11/06/24 10:44 10 mg QDAY BRITTANY Administration Heparin Sodium (Porcine) 5,000 unit 10/06/24 21:00 10/07/24 08:25 Heparin Sod Inj 5000 Unit/Ml Vial SC 10/20/24 20:59 5,000 unit Q12HR BRITTANY Administration Hydromorphone HCl 1 mg 10/07/24 11:02 Hydromorphone Inj 2 Mg/Ml Vial IVP 10/12/24 09:53 Q4HR PRN BREAKTHROUGH PAIN (SEVERE) Ceftriaxone Sodium/Dextrose 50 mls @ 100 mls/hr 10/06/24 12:38 10/07/24 08:24 Rocephin/D5w 1gm Iv Premix IV 10/13/24 12:37 100 mls/hr QDAY BRITTANY Administration Sodium Chloride 1,000 mls @ 250 mls/hr 10/06/24 17:47 10/07/24 11:03 Ns IV 10/07/24 17:46 250 mls/hr .Q4H BRITTANY Administration Ondansetron HCl 4 mg 10/06/24 12:27 10/06/24 20:01 Ondansetron Inj 2 Mg/Ml Inj 2 Ml IV 11/05/24 12:26 4 mg Q6H PRN Administration NAUSEA OR VOMITING Protocol Pantoprazole Sodium 40 mg 10/06/24 12:45 10/07/24 08:25 Pantoprazole Inj 40 Mg Vial IVP 11/05/24 12:44 40 mg QDAY BRITTANY Administration Sennosides 1 tab 10/07/24 09:00 10/07/24 08:23 Senna Tablet PO 11/06/24 08:59 1 tab QDAY BRITTANY Administration Protocol Plan Summary: The patient is a 44-year-old female with a past medical history of myocardial infarction and gallstones presented to the ED on 10/05/2024 with plaints of abdominal pain. He has been admitted for management of acute pancreatitis. #Acute gallstone pancreatitis #Cholelithiasis #Transaminitis The patient presented with a 2-day history of abdominal pain located in the epigastric and right upper quadrant, rated as a 9/10 in severity, nonradiating to the back but a little worse when lying in supine position. He denies any association with meals any new medications or any trauma to the abdominal region. Patient also denies fever, but endorses nausea, no vomiting diarrhea or constipation. In the ED, he was afebrile but tachycardic. Labs showed hyperbilirubinemia of 1.3, down trended from 3 in the last 3 months as well as leukocytosis with WBC of 16 elevated transaminases but normal ALP and lipase >3500. CT abdomen showed severe acute pancreatitis and no pseudocyst. Initial plan was for an MRCP to be acquired breast patient has piercings is impossible to do and ERCP was considered. Discussed with ED doctor and GI Dr. Valenzuela extensively, recommends to admit the patient for acute pancreatitis and the patient should require ERCP, Dr. Alexander will be available for procedure. 10/07/2024-patient has been unable to tolerate clear liquid diets, still complains of 8 out of 10 pain even with water. Will make patient n.p.o. and continue IV fluid and pain management. Will also consult surgery for possible intervention. Plan: -N.p.o. -Continue IV fluids NS at 250 cc/h -Continue IV ceftriaxone -Pain management with [place], morphine and Dilaudid -Surgery consulted, appreciate recommendations #Hypertension Patient reports a history of hypertension, but has never been on any medications. Blood pressure on admission has been ranging between 150 and 160s. Plan: -Will start him on amlodipine 10 mg daily Health maintenance: Dispo: MedSurg Diet: Clear liquid GI: Pantoprazole DVT: SC Heparin Lines: Peripheral PT: Not ordered Code: Full
--- NOTE | 2024-10-07 13:20 | PC.SS ---
Rickie Worley is a 44-year-old male admitted to [facility] for Acute Pancreatitis. SS conducted bedside contact with the patient to complete initial assessment and to discuss discharge planning.? Patient confirmed demographic information. Patient identifies his mother Sherri Soto [phone] as his surrogate decision maker. Patient resides at home with his mom. Pt states he is able to complete all ADL?s independently, no need for any source of DME. Pts does not possess a PCP and is not interested at this time. DC option discussed and pt wishes to return home. Pts family will provide transportation upon DC. No further intervention required at this time, director social would be available to address any further concerns. DC Plan: Home Contact: Sherri Soto [phone] PCP: [facility]
--- NOTE | 2024-10-07 16:43 | PD.IMPROG ---
Documentation for date of: 10/07/24 Subjective Subjective Interval history: Patient evaluated WBC count has gone slightly up to 19.2 but the hemoconcentration is getting better Hemoglobin hematocrit has improved to 15.6 and 46.2 with loss of hydration LFTs are improving to 1.7 total bilirubin AST ALT 7170 and alk phos of 98 Exam Vital Signs Temp Pulse Resp BP Pulse Ox O2 Del Method O2 Flow Rate 98.8 F 95 18 151/118 H 96 Room Air 2 10/07/24 12:00 10/07/24 12:00 10/07/24 12:00 10/07/24 12:00 10/07/24 12:00 10/07/24 12:00 10/05/24 22:34 Objective Labs 10/07/24 04:57 10/07/24 04:57 Labs: Laboratory Results - last 24 hr 10/07/24 04:57 WBC 19.2 H RBC 5.35 Hgb 15.6 Hct 46.2 MCV 86 MCH 29.2 MCHC 33.8 RDW Std Deviation 38.7 Plt Count 283 D Neut % (Auto) 88 H Lymph % (Auto) 6 L [place] % (Auto) 5 Eos % (Auto) 0 Baso % (Auto) 0 Neut # (Auto) 17.0 H Lymph # (Auto) 1.1 [place] # (Auto) 1.0 H Eos # (Auto) 0.0 Baso # (Auto) 0.1 Immature Gran # (Auto) 0.10 H Absolute Nucleated RBC 0.00 Immature Gran % 1 H Nucleated RBC % 0 Sodium 136 Potassium 4.0 D Chloride 105 Carbon Dioxide 22.3 Anion Gap 9 BUN 7 L Creatinine 0.7 Estim Creat Clear Calc 119.0 eGFR > 60 BUN/Creatinine Ratio 10 L Glucose 78 Calculated Osmolality 268 L Calcium 8.3 Corrected Calcium 8.4 L Phosphorus 1.6 L Magnesium 1.8 Total Bilirubin 1.7 H AST 70 H ALT 170 H Alkaline Phosphatase 98 Total Protein 6.5 Albumin 3.9 Globulin 2.6 Albumin/Globulin Ratio 1.5 Impressions Impression: # Gallstone pancreatitis # no evidence of choledocholithiasis continue current management Assessment & Plan A&P Narrative # Acute biliary pancreatitis # No evidence at the moment of choledocholithiasis # Abnormal LFTs improving and most likely due to the edema of the head of the pancreas and not choledocholithiasis as a CBD is normal sized Plan Admit the patient as an inpatient Surgical consultation for once the pancreatitis is decompressed and labs normalize Laparoscopic versus open cholecystectomy with intraoperative cholangiogram If the cholangiogram is positive we can always do an postoperative ERCP and I will speak to Dr. Alexander about that Patient does not need a preoperative ERCP for laparoscopic versus open cholecystectomy in this clinical presentation Effective pain control IV fluids Keep patient n.p.o. Thank you very much for the opportunity to participate in the care of this patient Time Spent With Patient Time: Total time spent is greater than 50% in coordination of care (as documented) at patient's floor/unit and/or counseling patient:
[2024-10-07 17:12] LABS: Amylase 378 U/L (30-118)
[2024-10-07] MEDS: ACETAMINOPHEN 325 MG TABLET 650 MG PO (20:42)
[2024-10-07] MEDS: HYDROmorphone INJ 2 MG/ML VIAL 1 MG IVP (23:53)
[2024-10-08] VITALS (7 sets, daily range): BP systolic 139–151; BP diastolic 75–101; PULSE 63–104; RESP 15–21; TEMP 36.2–43.5; O2SAT 93–96; BMI 24.9
[2024-10-08] MEDS: SODIUM CHLORIDE 0.9% 1000 ML 1,000 ML 250 ML IV ×4 (03:55→22:11)
[2024-10-08 06:17] LABS: Basophils # (Auto) 0.1 Thou/mm3 (0.0-0.2); Basophils % (Auto) 0 % (0-2.5); Eosinophils # (Auto) 0.1 Thou/mm3 (0.0-0.5); Eosinophils % (Auto) 1 % (0-10); Hematocrit 44.9 % (41.0-53.0); Hemoglobin 15.1 g/dL (13.5-16.0); Immature Granulocytes % (Auto) 0 % (0-0); Immature Granulocytes Auto 0.06 Thou/mm3 (0.00-0.00); Lymphocytes # (Auto) 1.8 Thou/mm3 (1.0-4.8); Lymphocytes % (Auto) 12 % (10-50); Mean Corpuscular HGB Conc 33.6 g/dl (31.0-37.0); Mean Corpuscular Hemoglobin 28.1 pg (25.0-35.0); Mean Corpuscular Volume 84 fL (80-100); Monocytes % (Auto) 7 % (0-12); Neutrophils # (Auto) 12.2 Thou/mm3 (1.8-7.7); Neutrophils % (Auto) 80 % (37-80); Nucleated Red Blood Cell % 0 /100 WBC (0); Platelet Count 265 Thou/mm3 (140-440); RDW Standard Deviation 37.3 fL (35.1-43.9); Red Blood Count 5.37 Miln/mm3 (4.50-5.90); White Blood Count 15.2 Thou/mm3 (3.8-10.6)
[2024-10-08] MEDS: MORPHINE SULF INJ 10 MG/ML VIAL 4 MG IVP ×3 (06:19→18:30)
[2024-10-08] MEDS: ACETAMINOPHEN 325 MG TABLET 650 MG PO (06:24)
[2024-10-08 06:55] LABS: Alanine Aminotransferase 107 U/L (10-49); Albumin, Serum 3.8 gm/dL (3.5-5.0); Albumin/Globulin Ratio 1.4 (1.2-2.2); Alkaline Phosphatase 96 U/L (46-116); Anion Gap 9 (7-16); Aspartate Amino Transferase 33 U/L (0-34); BUN/Creatinine Ratio 12 Ratio (12-20); Bilirubin,Total 1.3 mg/dL (0.3-1.2); Blood Urea Nitrogen 7 mg/dL (9-23); Calcium 8.8 mg/dL (8.3-10.6); Carbon Dioxide 22.8 mMol/L (20.0-31.0); Chloride 105 mMol/L (98-107); Creatinine (Component) 0.6 mg/dL (0.6-1.3); Estimated Creatinine Clearance 138.8 mL/min (>60); Globulin 2.8 gm/dL (2.3-3.5); Glucose 81 mg/dL (74-106); Magnesium 1.9 mg/dL (1.6-2.6); Osmolality,Calculated 270 (275-295); Potassium 3.7 mMol/L (3.4-5.1); Sodium 137 mMol/L (136-145); Total Protein 6.6 gm/dL (5.7-8.2); eGFR > 60 See Note
[2024-10-08 07:33] LABS: Phosphorous 0.8 mg/dL (2.4-5.1)
[2024-10-08] MEDS: SENNA TABLET 1 TAB PO (08:53)
[2024-10-08] MEDS: NAPH,KPH MBDB 1 PACKET (1.5 GM) 2 PACKET PO (08:54)
[2024-10-08] MEDS: amLODIPine BESYLATE 5 MG TABLET 10 MG PO (08:54)
[2024-10-08] MEDS: PANTOPRAZOLE INJ 40 MG VIAL IVP (08:55)
[2024-10-08] MEDS: Magnesium Sulfate 2 GM Ivpb 2 GM/50 ML BAG IV (08:55)
[2024-10-08] MEDS: cefTRIAXone/D5w 1gm IV premix 50 ML IV (08:55)
[2024-10-08] MEDS: HEPARIN SOD INJ 5000 UNIT/ML VIAL SC ×2 (08:56→20:51)
[2024-10-08] MEDS: POTASSIUM PHOS 22.5 MMOL in SODIUM CHLORIDE 0.9% 500 ML 500 ML 82.778 MMOL IV (10:15)
--- NOTE | 2024-10-08 15:48 | ESPR_ITS ---
<Statement entered by Alexx Mansfield MD - 10/16/24 11:48> I reviewed above note and agree with findings and plans. I have also personally examined the patient with medicine team and went over assessment and plan with medical team including international relations professor and resident physician. Documentation for date of: 10/08/24 Subjective Subjective Interval history: Patient was seen and examined at bedside. No acute overnight events. Patient reports his pain significantly improved. He was able to tolerate clear liquid diet in the morning, also endorsed he wants to transition to more solid food. Will continue IV fluids. Electrolytes were repleted. Will continue current management and monitor patient. Exam Vital Signs Temp Pulse Resp BP Pulse Ox O2 Del Method O2 Flow Rate 99.3 F 95 17 147/93 H 96 Room Air 2 10/08/24 12:00 10/08/24 12:10/08/24 12:10/08/24 12:00 10/08/24 12:00 10/08/24 12:00 10/05/24 22:34 Narrative Exam Gen: Well-developed and well-nourished male. HEENT: NCAT, PERRLA, EOMI, MMM, anicteric conjunctivae. CVS: normal S1 and S2. RRR. No M/R/G. Resp: CTA B/L. No rhonchi, rales, crackles or wheezing. Abd: soft, tender in upper quadrants, non-distended. BS+ in all 4 quadrants. MSK: Good ROM in BUE & BLE. No edema or rash. Neuro: CN II-XII grossly intact. Strength 5/5 in BUE & BLE. Alert and oriented x3. Psych: appropriate mood and affect. Objective Labs 10/08/24 05:04 10/08/24 05:04 Labs: Laboratory Results - last 24 hr 10/07/24 10/08/24 04:57 05:04 WBC 15.2 H RBC 5.37 Hgb 15.1 Hct 44.9 MCV 84 MCH 28.1 MCHC 33.6 RDW Std Deviation 37.3 Plt Count 265 Neut % (Auto) 80 Lymph % (Auto) 12 [place] % (Auto) 7 Eos % (Auto) 1 Baso % (Auto) 0 Neut # (Auto) 12.2 H Lymph # (Auto) 1.8 [place] # (Auto) 1.0 H Eos # (Auto) 0.1 Baso # (Auto) 0.1 Immature Gran # (Auto) 0.06 H Absolute Nucleated RBC 0.00 Immature Gran % 0 Nucleated RBC % 0 Sodium 137 Potassium 3.7 Chloride 105 Carbon Dioxide 22.8 Anion Gap 9 BUN 7 L Creatinine 0.6 Estim Creat Clear Calc 138.8 eGFR > 60 BUN/Creatinine Ratio 12 Glucose 81 Calculated Osmolality 270 L Calcium 8.8 Corrected Calcium 9.0 Phosphorus 0.8 L* Magnesium 1.9 Total Bilirubin 1.3 H AST 33 ALT 107 H Alkaline Phosphatase 96 Total Protein 6.6 Albumin 3.8 Globulin 2.8 Albumin/Globulin Ratio 1.4 Amylase 378 H Quality Measures Quality Measures none Assessment & Plan Assessment Current Active Medications: Generic Name Dose Route Start Last Admin Trade Name Freq PRN Reason Stop Dose Admin Acetaminophen 650 mg 10/06/24 12:27 10/08/24 06:24 Acetaminophen 325 Mg Tablet PO 11/05/24 12:26 650 mg Q6H PRN Administration Pain 1-3 or Fever >100.3 Amlodipine Besylate 10 mg 10/07/24 10:45 10/08/24 08:54 Amlodipine Besylate 5 Mg Tablet PO 11/06/24 10:44 10 mg QDAY BRITTANY Administration Heparin Sodium (Porcine) 5,000 unit 10/06/24 21:00 10/08/24 08:56 Heparin Sod Inj 5000 Unit/Ml Vial SC 10/20/24 20:59 5,000 unit Q12HR BRITTANY Administration Hydromorphone HCl 1 mg 10/07/24 11:02 10/07/24 23:53 Hydromorphone Inj 2 Mg/Ml Vial IVP 10/12/24 09:53 1 mg Q4HR PRN Administration BREAKTHROUGH PAIN (SEVERE) Ceftriaxone Sodium/Dextrose 50 mls @ 100 mls/hr 10/06/24 12:38 10/08/24 10:00 Rocephin/D5w 1gm Iv Premix IV 10/13/24 12:37 Infused QDAY BRITTANY Infusion Sodium Chloride 1,000 mls @ 250 mls/hr 10/08/24 11:05 10/08/24 12:08 Ns IV 10/08/24 23:04 250 mls/hr .Q4H BRITTANY Administration Morphine Sulfate 4 mg 10/07/24 12:48 10/08/24 12:07 Morphine Sulf Inj 10 Mg/Ml Vial IVP 10/12/24 12:47 4 mg Q6HR PRN Administration pain 6-10 Ondansetron HCl 4 mg 10/06/24 12:27 10/06/24 20:01 Ondansetron Inj 2 Mg/Ml Inj 2 Ml IV 11/05/24 12:26 4 mg Q6H PRN Administration NAUSEA OR VOMITING Protocol Pantoprazole Sodium 40 mg 10/06/24 12:45 10/08/24 08:55 Pantoprazole Inj 40 Mg Vial IVP 11/05/24 12:44 40 mg QDAY BRITTANY Administration Sennosides 1 tab 10/07/24 09:00 10/08/24 08:53 Senna Tablet PO 11/06/24 08:59 1 tab QDAY BRITTANY Administration Protocol Plan Summary: The patient is a 44-year-old female with a past medical history of myocardial infarction and gallstones presented to the ED on 10/05/2024 with plaints of abdominal pain. He has been admitted for management of acute pancreatitis. #Acute gallstone pancreatitis. #Cholelithiasis. #Transaminitis. The patient presented with a 2-day history of abdominal pain located in the epigastric and right upper quadrant, rated as a 9/10 in severity, nonradiating to the back but a little worse when lying in supine position. He denies any association with meals any new medications or any trauma to the abdominal region. Patient also denies fever, but endorses nausea, no vomiting diarrhea or constipation. In the ED, he was afebrile but tachycardic. Labs showed hyperbilirubinemia of 1.3, down trended from 3 in the last 3 months as well as leukocytosis with WBC of 16 elevated transaminases but normal ALP and lipase >3500. CT abdomen showed severe acute pancreatitis and no pseudocyst. Initial plan was for an MRCP to be acquired breast patient has piercings is impossible to do and ERCP was considered. Discussed with ED doctor and GI Dr. Valenzuela extensively, recommends to admit the patient for acute pancreatitis and the patient should require ERCP, Dr. Alexander will be available for procedure. 10/07/2024-patient has been unable to tolerate clear liquid diets, still complains of 8 out of 10 pain even with water. Will make patient n.p.o. and continue IV fluid and pain management. Will also consult surgery for possible intervention. Plan: -advance to low fat diet. -Continue IV fluids NS at 250 cc/h. -Continue IV ceftriaxone. -Pain management with [place], morphine and Dilaudid. -Surgery consulted, appreciate recommendations. #Hypertension Patient reports a history of hypertension, but has never been on any medications. Blood pressure on admission has been ranging between 150 and 160s. Plan: -Will start him on amlodipine 10 mg daily Health maintenance: Dispo: MedSurg, advancing diet. Diet: low fat GI: Pantoprazole DVT: SC Heparin Lines: Peripheral PT: Not ordered Code: Full Plan of care discussed with attending Dr. Mansfield. Jj Huggins MD, PGY 2. Disclaimer: This note was dictated by speech recognition. Minor errors in boiler out may be present due to voice recognition software.
--- NOTE | 2024-10-08 16:17 | PD.SURCONS ---
[facility] Consult details Consult date: 10/08/24 Reason for consultation narrative: The patient was seen on consultation yesterday because of pancreatitis History of present illness: History of presenting illness revealed that the patient developed upper abdominal pain 2 days ago associated with vomiting and was admitted to the hospital. Patient had a similar episode of upper abdominal pain in June of last year and he came to the emergency room and was told that he had gallstones but no surgery was recommended. Patient denies any alcohol intake except occasional beer. 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 He had an episode of myocardial infarction 3 years ago which was treated in [place] with the placement of a stent. At the present time patient is not taking any blood thinners like Plavix. He has not had any follow-up with his education manager since the stent was placed. His past medical history otherwise is negative Past Medical History Past Medical History NEUROLOGIC: Positive Neurological Disorders and Seizures (1 seizure episode 3 years ago) CARDIAC: Positive Cardiac Disorders, Myocardial Infarction (2 years ago), Atherosclerotic Heart Disease and Hypertension; Negative Cardiac Arrhythmia, Atrial Fibrillation, Angina, Heart Murmur, Coronary Artery Disease, Peripheral Vascular Disease, Hypercholesterolemia, Aneurysm, Congestive Heart Failure, Congenital Heart Disease, Valvular Heart Disease, Rheumatic Fever, Cardiomyopathy, Edema, Pericarditis, Cellulitis, Deep Vein Thrombosis, Hypotension or Varicose Veins RESPIRATORY: Positive Asthma; Negative Respiratory Disorders or Chronic Obstructive Pulmonary Disease (COPD) GASTROINTESTINAL: Negative Gastrointestinal Disorders GENITOURINARY: Negative Genitourinary Disorders or Renal Disease MUSCULOSKELETAL: Negative Musculoskeletal Disorders ENT: Negative History of ENT Problems, Cataracts, Glaucoma, Blind, Retinal Detachment, Macular Degeneration, Ear Infection, Deafness or Eye Prosthesis ENDOCRINE: Negative Endocrine Disorders, Diabetes Mellitus Type 1, Diabetes Mellitus Type 2, Hypoglycemia, [place]'s Syndrome, [place]'s Disease, Hyperthyroidism, Hypothyroidism, Parathyroid Disease, Pituitary Disease, Systemic Lupus Erythematosus, Syndrome of Inappropriate Antidiuretic Hormone (SIADH), Adrenal Disease or Graves' Disease HEMATOLOGIC: Negative Blood Disorders or Sickle Cell Disease OTHER HISTORY: Negative Autoimmune Disease, Anesthesia Reactions or Cancer Family History FAMILY HISTORY: Positive Family Cardiac Disorders (mother had [place]); Negative Family Psychiatric Problems, Family Respiratory Disorders, Family Gastrointestinal Problems, Family Genitourinary Problems, Family Endocrine Disorders, Family Reproductive Disorders, Family Musculoskeletal Disorders, Family Cancer, Family Surgery or Family Anesthesia Reaction Surgical History SURGICAL: Negative Pacemaker, Abdominal Surgery, Gastric Bypass Surgery, Gastrostomy, Bowel Surgery, Nephrectomy, Joint Replacement, Neurologic Surgery or Vasectomy OTHER SURGICAL HX: As in the history of present illness Social History SMOKING STATUS: Never smoker Meds Home Medications and Allergies Allergies Allergy/AdvReac Type Severity Reaction Status Date / Time Iodinated Contrast Media Allergy Severe Difficulty Verified 10/05/24 21:48 Breathing Exam Vital Signs Temp Pulse Resp BP Pulse Ox O2 Del Method O2 Flow Rate 99.3 F 95 17 147/93 H 96 Room Air 2 10/08/24 12:10/08/24 12:10/08/24 12:10/08/24 12:10/08/24 12:10/08/24 12:00 10/05/24 22:34 Narrative Exam Physical examination revealed well-built well-nourished male who is 5 foot 6 inches tall weighing 155 pounds. His vital signs are normal other than a heart rate of around 95. Constitutional Constitutional: moderate distress Routine Abdominal Exam Comments: Examination of the abdomen showed considerable tenderness in the epigastric region with some guarding. Routine Rectal Exam Comments: Deferred Routine Exam Comments: Deferred Results Results: Laboratory Laboratory Narrative: Patient's laboratory workup showed leukocytosis around 18,000 with a shift to the left. He has elevated amylase and lipase. Lipase is around 3500 Results: Imaging Imaging narrative: CT scan of the abdomen showed significant edema surrounding the pancreas. He also has gallstones Assessment & Plan Additional Assessment Additional comments: Impression: Gallstone pancreatitis History of [place] treated with stent placement 3 years ago Plan Plan: Patient will require a laparoscopic cholecystectomy after pancreatitis resolved. Usually they do not require any ERCP because pancreatitis is results and the stone is passed through the ampulla. Because of his cardiac history I suggest we evaluate him with a education manager for general anesthesia. I will follow the patient scheduled for surgery
--- NOTE | 2024-10-08 16:38 | ECHO_ITS ---
Transthoracic Echo Report Ht (in): 66 Wt (lb): 155 Exam Location: Echo Lab Status: Inpatient Injection Maintenance Technician: Annabel Tillman Indications: Procedure Performed: BP: 132 / 78 HR: 94 Technical Quality: Technically difficult study MEASUREMENTS (Male / Female) Normal Values 2D ECHO LV Diastolic Diameter PLAX 4.8 cm 4.2 - 5.9 / 3.9 - 5.3 cm LV Systolic Diameter PLAX 3.1 cm IVS Diastolic Thickness 0.6 cm 0.6 - 1.0 / 0.6 - 0.9 cm LVPW Diastolic Thickness 0.9 cm 0.6 - 1.0 / 0.6 - 0.9 cm LV Relative Wall Thickness 0.3 LVOT Diameter 2.1 cm Aortic Root Diameter 3.0 cm LA Volume Index 17.1 cm?/m? 16 - 28 cm?/m? M-MODE Aortic Root Diameter MM 3.0 cm LA Systolic Diameter MM 3.9 cm LA Ao Ratio MM 1.3 AV Cusp Separation MM 2.0 cm DOPPLER AV Peak Velocity 146.0 cm/s AV Peak Gradient 8.5 mmHg AV Mean Gradient 4.0 mmHg AV Velocity Time Integral 23.4 cm LVOT Peak Velocity 117.0 cm/s LVOT Peak Gradient 5.5 mmHg LVOT Velocity Time Integral 20.6 cm LVOT Cardiac Index 3685.5 cm?/min?m? AV Area Cont Eq vti 3.0 cm? AV Area Cont Eq pk 2.8 cm? MV Area PHT 4.9 cm? Mitral E Point Velocity 65.0 cm/s Mitral A Point Velocity 76.2 cm/s Mitral E to A Ratio 0.9 LV E' Lateral Velocity 17.0 cm/s Mitral E to LV E' Lateral Ratio 3.8 LV E' Septal Velocity 10.7 cm/s Mitral E to LV E' Septal Ratio 6.1 PV Peak Velocity 126.0 cm/s PV Peak Gradient 6.4 mmHg FINDINGS Left Ventricle Normal left ventricular size and wall thickness. The ejection fraction is visually estimated at 70-75 %. Hyperdynamic LV. Right Ventricle The right ventricle is normal in size and systolic function. Left Atrium The left atrium is normal by two-dimensional, color flow and Doppler imaging with no structural abnormalities, no thrombus formation present. Right Atrium The right atrium is normal by two-dimensional imaging, color flow and Doppler imaging with no structural abnormalities, no thrombus formation present. Atrial Septum The interatrial septum appears normal with no evidence of a shunt. Aorta The aorta is normal by two-dimensional, color flow and Doppler interrogation. Mitral Valve The mitral valve is normal by two-dimensional, color flow and Doppler interrogation. There is no significant mitral valve regurgitation, stenosis or prolapse. Aortic Valve The aortic valve is trileaflet and normal by two-dimensional, color flow and Doppler interrogation. There is no significant aortic valve regurgitation. Tricuspid Valve The tricuspid valve is normal by two-dimensional, color flow and Doppler interrogation. There is trace tricuspid valve regurgitation. Pulmonic Valve The pulmonic valve is not well visualized. There is no significant pulmonic valve regurgitation. Vessels The pulmonary artery appears normal. The inferior vena cava pulmonary and hepatic veins appear normal. Pericardium The pericardium is normal by two-dimensional imaging. There is no significant pericardial effusion. CONCLUSIONS Indication: pre operative cardiac risk assessment Normal LV size and wall thickness. Normal Lv function. Estimated EF 60-65 %. Normal Rv size and systolic function. Trace TR. Jeramy Collins (Electronically Signed) Final Date: 10 October 2024 00:58
--- NOTE | 2024-10-08 19:57 | ESPR_ITS ---
Documentation for date of: 10/08/24 Subjective Subjective Interval history: Patient clinically improving WBC count is improving to 15.2 from 19.2 Hemoconcentration improving to 15.1 hemoglobin hematocrit of 44.9 Phosphorus is 0.8 Calcium is 9.0 Amylase 378 Exam Vital Signs Temp Pulse Resp BP Pulse Ox O2 Del Method O2 Flow Rate 110.3 F H 104 H 18 139/86 H 94 L Room Air 2 10/08/24 16:00 10/08/24 16:00 10/08/24 16:00 10/08/24 16:00 10/08/24 16:00 10/08/24 16:00 10/05/24 22:34 Constitutional Comments: Less pain Routine Respiratory Exam Comments: Normal to auscultation Routine Abdominal Exam Comments: Soft tender positive bowel sounds Objective Labs 10/08/24 05:04 10/08/24 05:04 Labs: Laboratory Results - last 24 hr 10/08/24 05:04 WBC 15.2 H RBC 5.37 Hgb 15.1 Hct 44.9 MCV 84 MCH 28.1 MCHC 33.6 RDW Std Deviation 37.3 Plt Count 265 Neut % (Auto) 80 Lymph % (Auto) 12 [place] % (Auto) 7 Eos % (Auto) 1 Baso % (Auto) 0 Neut # (Auto) 12.2 H Lymph # (Auto) 1.8 [place] # (Auto) 1.0 H Eos # (Auto) 0.1 Baso # (Auto) 0.1 Immature Gran # (Auto) 0.06 H Absolute Nucleated RBC 0.00 Immature Gran % 0 Nucleated RBC % 0 Sodium 137 Potassium 3.7 Chloride 105 Carbon Dioxide 22.8 Anion Gap 9 BUN 7 L Creatinine 0.6 Estim Creat Clear Calc 138.8 eGFR > 60 BUN/Creatinine Ratio 12 Glucose 81 Calculated Osmolality 270 L Calcium 8.8 Corrected Calcium 9.0 Phosphorus 0.8 L* Magnesium 1.9 Total Bilirubin 1.3 H AST 33 ALT 107 H Alkaline Phosphatase 96 Total Protein 6.6 Albumin 3.8 Globulin 2.8 Albumin/Globulin Ratio 1.4 Impressions Impression: # Acute gallstone pancreatitis/biliary pancreatitis # Pain abdomen secondary to 1 # Improving leukocytosis # hypophosphatemia repeat amylase lipase CBC CMP in the morning Assessment & Plan A&P Narrative # Acute biliary pancreatitis # No evidence at the moment of choledocholithiasis # Abnormal LFTs improving and most likely due to the edema of the head of the pancreas and not choledocholithiasis as a CBD is normal sized Plan Admit the patient as an inpatient Surgical consultation for once the pancreatitis is decompressed and labs normalize Laparoscopic versus open cholecystectomy with intraoperative cholangiogram If the cholangiogram is positive we can always do an postoperative ERCP and I will speak to Dr. Alexander about that Patient does not need a preoperative ERCP for laparoscopic versus open cholecystectomy in this clinical presentation Effective pain control IV fluids Keep patient n.p.o. Thank you very much for the opportunity to participate in the care of this patient Time Spent With Patient Time: Total time spent is greater than 50% in coordination of care (as documented) at patient's floor/unit and/or counseling patient:
[2024-10-09] VITALS (8 sets, daily range): BP systolic 129–145; BP diastolic 78–99; PULSE 94–103; RESP 18–19; TEMP 36.4–37.3; O2SAT 95–99
[2024-10-09] MEDS: HYDROmorphone INJ 2 MG/ML VIAL 1 MG IVP (02:46)
[2024-10-09 06:20] LABS: Basophils # (Auto) 0.1 Thou/mm3 (0.0-0.2); Basophils % (Auto) 1 % (0-2.5); Eosinophils # (Auto) 0.3 Thou/mm3 (0.0-0.5); Eosinophils % (Auto) 2 % (0-10); Hematocrit 42.4 % (41.0-53.0); Hemoglobin 14.8 g/dL (13.5-16.0); Immature Granulocytes % (Auto) 0 % (0-0); Immature Granulocytes Auto 0.04 Thou/mm3 (0.00-0.00); Lymphocytes # (Auto) 1.9 Thou/mm3 (1.0-4.8); Lymphocytes % (Auto) 17 % (10-50); Mean Corpuscular HGB Conc 34.9 g/dl (31.0-37.0); Mean Corpuscular Hemoglobin 29.1 pg (25.0-35.0); Mean Corpuscular Volume 83 fL (80-100); Monocytes # (Auto) 0.9 Thou/mm3 (0.0-0.8); Monocytes % (Auto) 8 % (0-12); Neutrophils % (Auto) 72 % (37-80); Nucleated Red Blood Cell % 0 /100 WBC (0); Platelet Count 290 Thou/mm3 (140-440); RDW Standard Deviation 36.8 fL (35.1-43.9); Red Blood Count 5.09 Miln/mm3 (4.50-5.90); White Blood Count 11.1 Thou/mm3 (3.8-10.6)
[2024-10-09 07:05] LABS: Alanine Aminotransferase 73 U/L (10-49); Albumin, Serum 3.9 gm/dL (3.5-5.0); Albumin/Globulin Ratio 1.4 (1.2-2.2); Alkaline Phosphatase 101 U/L (46-116); Anion Gap 9 (7-16); Aspartate Amino Transferase 22 U/L (0-34); BUN/Creatinine Ratio 10 Ratio (12-20); Bilirubin,Total 0.8 mg/dL (0.3-1.2); Blood Urea Nitrogen 6 mg/dL (9-23); Calcium 8.6 mg/dL (8.3-10.6); Calcium (Corrected) 8.7 mg/dL (8.5-10.1); Carbon Dioxide 23.3 mMol/L (20.0-31.0); Chloride 106 mMol/L (98-107); Creatinine (Component) 0.6 mg/dL (0.6-1.3); Estimated Creatinine Clearance 138.8 mL/min (>60); Globulin 2.8 gm/dL (2.3-3.5); Glucose 104 mg/dL (74-106); Lipase 42 U/L (12-53); Magnesium 1.9 mg/dL (1.6-2.6); Osmolality,Calculated 273 (275-295); Phosphorous 1.1 mg/dL (2.4-5.1); Potassium 3.5 mMol/L (3.4-5.1); Sodium 138 mMol/L (136-145); Total Protein 6.7 gm/dL (5.7-8.2); eGFR > 60 See Note
[2024-10-09 07:28] LABS: Amylase 62 U/L (30-118)
[2024-10-09] MEDS: SENNA TABLET 1 TAB PO (08:54)
[2024-10-09] MEDS: amLODIPine BESYLATE 5 MG TABLET 10 MG PO (08:54)
[2024-10-09] MEDS: PANTOPRAZOLE INJ 40 MG VIAL IVP (09:56)
[2024-10-09] MEDS: cefTRIAXone/D5w 1gm IV premix 50 ML IV (09:57)
--- NOTE | 2024-10-09 10:20 | ESPR_ITS ---
Documentation for date of: 10/09/24 Subjective Subjective Brief History: History of presenting illness revealed that the patient developed upper abdominal pain 2 days ago associated with vomiting and was admitted to the hospital. Patient had a similar episode of upper abdominal pain in June of last year and he came to the emergency room and was told that he had gallstones but no surgery was recommended. Patient denies any alcohol intake except occasional beer. 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 He had an episode of myocardial infarction 3 years ago which was treated in [place] with the placement of a stent. At the present time patient is not taking any blood thinners like Plavix. He has not had any follow-up with his electroencephalographic technician since the stent was placed. His past medical history otherwise is negative Narrative: Patient's abdominal pain is better and he is tolerating diet well. He is on clear liquids. Exam Vital Signs Temp Pulse Resp BP Pulse Ox O2 Del Method O2 Flow Rate 99.1 F 95 19 138/88 H 96 Room Air 2 10/09/24 07:41 10/09/24 08:54 10/09/24 07:41 10/09/24 08:54 10/09/24 07:41 10/09/24 07:41 10/05/24 22:34 His vital signs are normal other than tachycardia with a heart rate of around 95 Routine Abdominal Exam Comments: Abdominal examination is negative with no tenderness in the epigastric region Results Results: Laboratory Laboratory Narrative: Patient's laboratory workup showed WBC around 11,000 which is coming towards normal value Liver enzymes are normal. His amylase and lipase are normal Assessment & Plan Assessment Additional comments: Impression: Stable recovery from pancreatitis Cholelithiasis Plan Plan: Patient will be ready for laparoscopic cholecystectomy and I will arrange it tomorrow.
[2024-10-09] MEDS: POTASSIUM PHOS 22.5 MMOL in SODIUM CHLORIDE 0.9% 500 ML 500 ML 82.778 MMOL IV (11:25)
--- NOTE | 2024-10-09 11:27 | EKG_ITS ---
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
[2024-10-09] MEDS: HEPARIN SOD INJ 5000 UNIT/ML VIAL SC ×2 (12:39→20:27)
[2024-10-09] MEDS: NAPH,KPH MBDB 1 PACKET (1.5 GM) 2 PACKET PO (12:39)
--- NOTE | 2024-10-09 12:53 | PC.NURSE ---
I let Dr. Truong know that Dr. Hawley called to say he wants the hospitalists to order a cardiac consult for surgery
--- NOTE | 2024-10-09 13:53 | PC.NURSE ---
notified Dr. Truong that pt stated he swallowed wrong and is having some difficulty breathing, chest does sound tight, she said she will come and see him, O2 sats 90%
[2024-10-09] MEDS: ALBUTEROL/IPRATROPIUM (Duoneb) RT SOL 3 ML NEBU INH (14:00)
--- NOTE | 2024-10-09 15:16 | ESPR_ITS ---
<Statement entered by Alexx Mansfield MD - 10/16/24 11:50> I reviewed above note and agree with findings and plans. I have also personally examined the patient with medicine team and went over assessment and plan with medical team including financial services internship and resident physician. Documentation for date of: 10/09/24 Subjective Subjective Interval history: Patient seen at bedside. No acute overnight events. He reports being pain free today and has been tolerating a clear liquid diet. He was evaluated by surgeon Dr. Byers yesterday who will schedule him for surgery pending cardiac clearance. Patient also reported having some difficulty breathing today, on examination was wheezing. He does have a history of asthma and has a rescue albuterol inhaler which did not seem to work. Will give breathing treatments and plan on discharge for long-acting beta agonist. Exam Vital Signs Temp Pulse Resp BP Pulse Ox O2 Del Method O2 Flow Rate 98.8 F 99 18 133/88 H 99 Room Air 2 10/09/24 11:22 10/09/24 14:03 10/09/24 14:03 10/09/24 11:22 10/09/24 14:03 10/09/24 11:22 10/05/24 22:34 Narrative Exam GENERAL: AAOX3 NEURO: REFRACTORY BRICKLAYER grossly intact, moves extremities x4 HEENT: Moist mucosa. Eyes open, symmetrical, & clear CARDIO: No chest pain on palpation. Heart RRR, no obvious murmurs PULM: No noted coughing/dyspnea. Wheezing in upper lung garcia bilaterally. GI: Abdomen soft, nondistended, no pain on palpation. BSx4 URO/SET UP OPERATOR:: No further abnormalities noted. SKIN/MSK/EXT: No wounds/rashes/edema/amputations, no pain on palpation. Pedal pulses present B/L Objective Labs 10/09/24 05:39 10/09/24 05:39 Labs: Laboratory Results - last 24 hr 10/09/24 05:39 WBC 11.1 H RBC 5.09 Hgb 14.8 Hct 42.4 MCV 83 MCH 29.1 MCHC 34.9 RDW Std Deviation 36.8 Plt Count 290 Neut % (Auto) 72 Lymph % (Auto) 17 Bullock % (Auto) 8 Eos % (Auto) 2 Baso % (Auto) 1 Neut # (Auto) 8.0 H Lymph # (Auto) 1.9 Bullock # (Auto) 0.9 H Eos # (Auto) 0.3 Baso # (Auto) 0.1 Immature Gran # (Auto) 0.04 H Absolute Nucleated RBC 0.00 Immature Gran % 0 Nucleated RBC % 0 Sodium 138 Potassium 3.5 Chloride 106 Carbon Dioxide 23.3 Anion Gap 9 BUN 6 L Creatinine 0.6 Estim Creat Clear Calc 138.8 eGFR > 60 BUN/Creatinine Ratio 10 L Glucose 104 Calculated Osmolality 273 L Calcium 8.6 Corrected Calcium 8.7 Phosphorus 1.1 L Magnesium 1.9 Total Bilirubin 0.8 D AST 22 ALT 73 H Alkaline Phosphatase 101 Total Protein 6.7 Albumin 3.9 Globulin 2.8 Albumin/Globulin Ratio 1.4 Amylase 62 Lipase 42 Quality Measures Quality Measures none Assessment & Plan Assessment Current Active Medications: Generic Name Dose Route Start Last Admin Trade Name Freq PRN Reason Stop Dose Admin Acetaminophen 650 mg 10/06/24 12:27 10/08/24 06:24 Acetaminophen 325 Mg Tablet PO 11/05/24 12:26 650 mg Q6H PRN Administration Pain 1-3 or Fever >100.3 Albuterol/Ipratropium 3 ml 10/09/24 13:49 10/09/24 14:00 Albuterol/Ipratropium (Duoneb) Rt Nan 3 Ml Nebu INH 11/08/24 14:59 3 ml Q4HRRT PRN Administration SOB or wheeze Amlodipine Besylate 10 mg 10/07/24 10:45 10/09/24 08:54 Amlodipine Besylate 5 Mg Tablet PO 11/06/24 10:44 10 mg QDAY BRITTANY Administration Heparin Sodium (Porcine) 5,000 unit 10/06/24 21:00 10/09/24 12:39 Heparin Sod Inj 5000 Unit/Ml Vial SC 10/20/24 20:59 5,000 unit Q12HR BRITTANY Administration Hydromorphone HCl 1 mg 10/07/24 11:02 10/09/24 02:46 Hydromorphone Inj 2 Mg/Ml Vial IVP 10/12/24 09:53 1 mg Q4HR PRN Administration BREAKTHROUGH PAIN (SEVERE) Ceftriaxone Sodium/Dextrose 50 mls @ 100 mls/hr 10/06/24 12:38 10/09/24 09:57 Rocephin/D5w 1gm Iv Premix IV 10/13/24 12:37 100 mls/hr QDAY BRITTANY Administration Morphine Sulfate 4 mg 10/07/24 12:48 10/08/24 18:30 Morphine Sulf Inj 10 Mg/Ml Vial IVP 10/12/24 12:47 4 mg Q6HR PRN Administration pain 6-10 Ondansetron HCl 4 mg 10/06/24 12:27 10/06/24 20:01 Ondansetron Inj 2 Mg/Ml Inj 2 Ml IV 11/05/24 12:26 4 mg Q6H PRN Administration NAUSEA OR VOMITING Protocol Pantoprazole Sodium 40 mg 10/06/24 12:45 10/09/24 09:56 Pantoprazole Inj 40 Mg Vial IVP 11/05/24 12:44 40 mg QDAY BRITTANY Administration Sennosides 1 tab 10/07/24 09:00 10/09/24 08:54 Senna Tablet PO 11/06/24 08:59 1 tab QDAY BRITTANY Administration Protocol Plan Summary: The patient is a 44-year-old female with a past medical history of myocardial infarction and gallstones presented to the ED on 10/05/2024 with complaints of abdominal pain. He has been admitted for management of acute pancreatitis. #Acute gallstone pancreatitis. #Cholelithiasis. #Transaminitis. The patient presented with a 2-day history of abdominal pain located in the epigastric and right upper quadrant, rated as a 9/10 in severity, nonradiating to the back but a little worse when lying in supine position. He denies any association with meals any new medications or any trauma to the abdominal region. Patient also denies fever, but endorses nausea, no vomiting diarrhea or constipation. In the ED, he was afebrile but tachycardic. Labs showed hyperbilirubinemia of 1.3, down trended from 3 in the last 3 months as well as leukocytosis with WBC of 16 elevated transaminases but normal ALP and lipase >3500. CT abdomen showed severe acute pancreatitis and no pseudocyst. Initial plan was for an MRCP to be acquired breast patient has piercings is impossible to do and ERCP was considered. Discussed with ED doctor and GI Dr. Valenzuela extensively, recommends to admit the patient for acute pancreatitis and the patient should require ERCP, Dr. Alexander will be available for procedure. 10/09/2024- Patient is tolerating diet well and no longer has any abdominal pain. Evaulated by surgeon, will schedule for surgery. Pending cardiac clearance. Plan: -Continue feeding as tolerated. NPO after midnight once cleared and scheduled for surgery tomorrow. -Continue IV ceftriaxone. -Pain management with [place], morphine and Dilaudid. -Surgery consulted, appreciate recommendations. #Hypertension Patient reports a history of hypertension, but has never been on any medications. Blood pressure on admission has been ranging between 150 and 160s. Plan: -Will start him on amlodipine 10 mg daily #History of asthma The patient has a history of asthma and uses a rescue albuterol inhaler at home. He had some chest tightness and wheezing today, his inhaler didnt help. Plan: -Duonebs PRN -Plan for long acting beta agonist on discharge. Health maintenance: Dispo: MedSurg, advancing diet.NPO after midnight Diet: low fat GI: Pantoprazole DVT: SC Heparin Lines: Peripheral PT: Not ordered Code: Full Case was discussed with Dr Jimenez PGY-2 and attending physician, Dr Shyla Truong MD PGY-1 L Patient is a 44 year old male admitted for management of acute pancreatitis. CT abdomen pelvis was remarkable for severe pancreatitis and lipase >3500 on 10/05/2024 at presentation. General surgery was consulted for gallstone pancreatitis in the setting of cholelithiasis. Patient was treated with aggressive IV fluids, he is net +10L during the hospitalization, he is now tolerating diet comfortably. Dispo : Cardiac clearance pending prior to surgical intervention. Anticipate lap cholecystectomy by Dr Byers on 10/10 Patient examined and case discussed with the team including attending physician. Note reviewed, I agree with the care plan as documented. - Teo Jimenez MD, PGY 2
--- NOTE | 2024-10-09 19:21 | ESCONSULT_ITS ---
<Statement entered by Jeramy Collins MD - 10/10/24 04:54> I have personally seen and examined the patient separately on the above date of service and discussed the plan of care with the resident. I reviewed the resident Dr. Dany Mello consultation progress note and agree with the resident findings and plan in the note above and have also edited the documentation to reflect my findings and plan. A 44-year-old male with past medical history of CAD status post PCI to RCA with 2 ALBERTO stents [3.0 x 16 mm in mRCA and 3.0 x 12 mm in p RCA on 06/05/2020], only on aspirin not on any medications, essential hypertension, asthma, chronic daily marijuana use presented to the emergency department for further evaluation of abdominal pain, 10/05/2024. Patient came in with complaint of severe abdominal pain which was epigastric and right upper quadrant radiating to the back for 2 days prior to the admission. Denied any Chest pain chest pressure or shortness of breath or orthopnea or PND or dizziness or syncope or fall. Denies any cardiac swelling or palpitations or diaphoresis. Denied any kind of fever or chills. Patient did have some nausea. In the emergency department patient initial set of vitals showed mild tachycardia and elevated blood pressure in 162/89 mmHg. Labs showed elevated WBC 16.5 with left shift, lipase greater than 3500 and T. bili of 1.3. Calcium was 10.3 hemoglobin was 17.8 and rest of the CBC and BMP were normal. UA was negative. Ultrasound showed cholelithiasis negative for cholestasis CBD was 0.[address] abdomen pelvis showed severe acute pancreatitis with no pseudocyst. Patient diagnosed with acute biliary/gallstone pancreatitis and GI and surgical team were consulted. Decision was made to perform cholecystectomy with intraoperative cholangiogram and cardiology now consulted for preoperative cardiac risk. Assessment and plan: Preoperative cardiac risk assessment: Patient is planned for a laparoscopic or open cholecystectomy with intraoperative cholangiogram which is intermittent risk surgery. Patient will receive general anesthesia for the procedure. Patient functional status is greater than 4 METS at baseline. Regarding his RCRI score is only 1 with a history of CAD with stent and does not have any chest pain chest pressure or other cardiac complaints. No significant arrhythmias at the present moment and does not appear to be in heart failure. No evidence of previous diabetes mellitus on insulin or any CKD. EKG performed showed normal sinus rhythm without any acute ST-T changes suggestive of any acute ischemia. Echocardiogram was performed this morning and showed normal LV function and RV function with an EF of around 65%. There is only trace to mild valvular abnormalities. Given normal EKG and echocardiogram and absence of any cardiac symptoms with the RCRI score of only 1 patient is at mildly elevated but acceptable cardiac risk for the surgery and recommend to proceed with the surgery with no further cardiac testing. Continue aspirin perioperatively. Patient appears to be having asthma exacerbation today and recommend to continue albuterol and Atrovent nebulizations and also add some long-acting bronchodilator for the patient Patient does have a history of CAD status post PCI in June 2020 and he received 2 stents to the proximal and mid RCA [3.0 x 12 mm and 3.0 x 16 mm respectively], patient is only on aspirin. As per patient he did take 2 of antiplatelets for 6 months to 1 year and he followed up only a couple of times with a cardiology but have not received any further follow-up. Patient has not been on a beta-daniel or any kind of statin. He does not follow with any doctors regularly. Patient is unaware that he has to take any other medications for his heart disease and reports that he does take his aspirin most of the time. Patient should be on aspirin 81 mg once daily and also statin high intensity at least Lipitor 40 mg once daily and also beta-daniel but could be contraindicated because of his asthma. If blood pressure is high then patient should be on losartan. Check TSH A1c and lipid profile for further cardiac restratification and patient should follow-up with cardiology regularly as outpatient. Management of rest of the medical conditions as per primary team and other consultants. Thank you for the consult and allowing me to participate in the care of the patient. Cardiology will continue to follow. Jeramy Collins M.D. Interventional Cardiology HPI Data of Consult Requesting Physician: Richard Hills MD Admitting Provider: Alexx Mansfield MD Attending Provider: Richard Hills MD Primary Care Provider: Physician No Primary/Family Consult Narrative History of present illness: Mr. Worley is a 44-year-old male with past medical history as significant for hypertension, asthma and previous NE for which patient underwent 2 stents placed at [facility] in 2019. Patient states that he was taking medications unknown to him the names for the first 6 months after the NE and after that he was lost to follow-up with a artificial intelligence specialist outpatient and never got his refills. The only medication patient adhere to taking is aspirin 81 mg daily. Patient had 3.00 mm x 16 mm stent placed in the mRCA and 3.0 mm x 12 mm stent placed in the RCA on June 05, [address] Kayla Lilly. The patient states that although he was diagnosed with asthma many years ago he uses an albuterol inhaler approximately once a month. However sometimes when he excessively coughs or chokes on something he starts to wheeze and ends up using his inhaler more often. Patient states he has been having severe abdominal pain starting on Tuesday which prompted him to come to the emergency room where he was diagnosed with acute pancreatitis. Patient denies any history of alcohol use or any drug use however patient endorses to smoking marijuana daily. Patient denies any other cardiac history other than the previous NE patient denies any chest pain, pressure, palpitations or any abnormal heart beats. Patient states he works at the [employer] and is able to lift 25 pound boxes with his hands daily without difficulty patient is able to also walk/run couple miles without stopping for shortness of breath. Patient is also able to walk up 10 floors of steps without difficulty. Patient states that he was supposed to be taking medication after his NE but he believed that he did not have to go beyond the 6-month which is the reason why he never followed up with his artificial intelligence specialist after this 6 months because he thought he completed his treatment plan. Cardiology team is consulted for preoperative risk assessment for intermediate noncardiac surgery requiring anesthesia. PMH: Primary hypertension, history of an NE in 2019 PSH: Patient had 2 stents placed in PRCA and MRCA SH: Patient smokes marijuana daily, patient denies any alcohol or drug use patient also denies tobacco use Home Meds: Aspirin 81 Mg daily cc:: cc: Richard Hills MD Review of Systems Review of Systems Systems Reviewed: All systems reviewed, normal except as documented Exam Vital Signs Temp Pulse Resp BP Pulse Ox O2 Del Method O2 Flow Rate 97.5 F 94 18 132/78 H 99 Room Air 2 10/09/24 16:00 10/09/24 16:00 10/09/24 16:10/09/24 16:10/09/24 16:00 10/09/24 16:00 10/05/24 22:34 Narrative Exam GENERAL: A&Ox3 . Awake, Not in acute distress NEURO: no focal neurological deficits HEENT: Atraumatic, Normocephalic. mucous membranes moist. Eyes open, symmetrical, & clear HEART: Normal Heart Sounds LUNGS: Clear to auscultation with no wheezing or crackles. ABDOMEN: soft, non-distended, non-tender, bowel sounds heard, no guarding or rebound tenderness SKIN: No Rash or ecchymoses, multiple tattoos covered bilaterally upper extremities and multiple tattoos on lower extremities bilaterally EXTREMITIES: No edema, tenderness, able to move all 4 extremities, pedal pulses palpated Results Labs 10/09/24 05:39 10/09/24 05:39 Labs: Short CBC 10/09/24 Range/Units 05:39 WBC 11.1 H (3.8-10.6) Thou/mm3 Hgb 14.8 (13.5-16.0) g/dL Hct 42.4 (41.0-53.0) % Plt Count 290 (140-440) Thou/mm3 BMP 10/09/24 05:39 Sodium 138 Potassium 3.5 Chloride 106 Carbon Dioxide 23.3 BUN 6 L Creatinine 0.6 Glucose 104 Calcium 8.6 Liver Function 10/09/24 Range/Units 05:39 Total Bilirubin 0.8 D (0.3-1.2) mg/dL AST 22 (0-34) U/L ALT 73 H (10-49) U/L Alkaline Phosphatase 101 (46-116) U/L Albumin 3.9 (3.5-5.0) gm/dL Quality Measures Quality Measures none Medications Home Medications and Allergies Allergies Allergy/AdvReac Type Severity Reaction Status Date / Time Iodinated Contrast Media Allergy Severe Difficulty Verified 10/05/24 21:48 Breathing Visit Medications Acetaminophen (Acetaminophen 325 Mg Tablet) 650 mg PO Q6H PRN PRN Reason: Pain 1-3 or Fever >100.3 Stop: 11/05/24 12:26 Last Admin: 10/08/24 06:24 Dose: 650 mg Albuterol/Ipratropium (Albuterol/Ipratropium (Duoneb) Rt Nan 3 Ml Nebu) 3 ml INH Q4HRRT PRN PRN Reason: SOB or wheeze Stop: 11/08/24 14:59 Last Admin: 10/09/24 14:00 Dose: 3 ml Amlodipine Besylate (Amlodipine Besylate 5 Mg Tablet) 10 mg PO QDAY [facility] Stop: 11/06/24 10:44 Last Admin: 10/09/24 08:54 Dose: 10 mg Budesonide (Budesonide Rt 0.25 Mg/2 Ml Nebu) 0.5 mg INH BIDRT [facility] Stop: 11/08/24 18:59 Last Admin: 10/09/24 19:12 Dose: Not Given Guaifenesin/Dextromethorphan (Guaifenesin/Dm Tablet) 1 each PO BID [facility] Stop: 11/08/24 20:59 Heparin Sodium (Porcine) (Heparin Sod Inj 5000 Unit/Ml Vial) 5,000 unit SC Q12HR [facility] Stop: 10/20/24 20:59 Last Admin: 10/09/24 12:39 Dose: 5,000 unit Hydromorphone HCl (Hydromorphone Inj 2 Mg/Ml Vial) 1 mg IVP Q4HR PRN PRN Reason: BREAKTHROUGH PAIN (SEVERE) Stop: 10/12/24 09:53 Last Admin: 10/09/24 02:46 Dose: 1 mg Ceftriaxone Sodium/Dextrose (Rocephin/D5w 1gm Iv Premix) 50 mls @ 100 mls/hr IV QDAY [facility] Stop: 10/13/24 12:37 Last Admin: 10/09/24 09:57 Dose: 100 mls/hr Morphine Sulfate (Morphine Sulf Inj 10 Mg/Ml Vial) 4 mg IVP Q6HR PRN PRN Reason: pain 6-10 Stop: 10/12/24 12:47 Last Admin: 10/08/24 18:30 Dose: 4 mg Ondansetron HCl (Ondansetron Inj 2 Mg/Ml Inj 2 Ml) 4 mg IV Q6H PRN; Protocol PRN Reason: NAUSEA OR VOMITING Stop: 11/05/24 12:26 Last Admin: 10/06/24 20:01 Dose: 4 mg Pantoprazole Sodium (Pantoprazole Inj 40 Mg Vial) 40 mg IVP QDAY [facility] Stop: 11/05/24 12:44 Last Admin: 10/09/24 09:56 Dose: 40 mg Sennosides (Senna Tablet) 1 tab PO QDAY [facility]; Protocol Stop: 11/06/24 08:59 Last Admin: 10/09/24 08:54 Dose: 1 tab Discontinued Medications Hydrocodone Bitart/Acetaminophen (Hydrocodone/Apap 5/325 Tablet) 1 tab PO Q6HR PRN PRN Reason: Pain 4-6 Stop: 10/11/24 12:38 Last Admin: 10/07/24 08:23 Dose: 1 tab Budesonide (Budesonide Rt 0.25 Mg/2 Ml Nebu) 0.25 mg INH BIDRT [facility] Stop: 10/10/24 18:00 Heparin Sodium (Porcine) (Heparin Sod Inj 5000 Unit/Ml Vial) 5,000 unit SC Q8HR [facility] Stop: 10/20/24 13:59 Hydralazine HCl (Hydralazine Inj 20 Mg/Ml Vial) 10 mg IV X1 ONE Stop: 10/05/24 22:23 Last Admin: 10/05/24 22:28 Dose: 10 mg Hydromorphone HCl (Hydromorphone Inj 2 Mg/Ml Vial) 1 mg IVP PRN BRITTANY Stop: 10/10/24 21:14 Last Admin: 10/06/24 10:30 Dose: 1 mg Hydromorphone HCl (Hydromorphone Inj 2 Mg/Ml Vial) 1 mg IVP Q30MIN PRN PRN Reason: PAIN Stop: 10/06/24 21:14 Last Admin: 10/06/24 06:18 Dose: 1 mg Hydromorphone HCl (Hydromorphone Inj 2 Mg/Ml Vial) 1 mg IVP X1 ONE Stop: 10/06/24 15:12 Last Admin: 10/06/24 16:15 Dose: 1 mg Hydromorphone HCl (Hydromorphone Inj 2 Mg/Ml Vial) 1 mg IVP Q4HR PRN PRN Reason: BREAKTHROUGH PAIN (SEVERE) Stop: 10/12/24 09:53 Sodium Chloride (Ns) 1,000 mls @ 500 mls/hr IV .Q2H ONE Stop: 10/05/24 21:54 Last Infusion: 10/05/24 22:33 Dose: Infused Sodium Chloride (Ns) 1,000 mls @ 999 mls/hr IV .Q1H1M ONE Stop: 10/05/24 22:08 Last Infusion: 10/05/24 22:37 Dose: Infused Sodium Chloride (Ns) 1,000 mls @ 999 mls/hr IV .Q1H1M ONE Stop: 10/05/24 22:10 Last Infusion: 10/05/24 23:57 Dose: Infused Piperacillin/Tazobactam/Dextrose (Zosyn) 100 mls @ 200 mls/hr IV X1 ONE Stop: 10/05/24 21:43 Last Admin: 10/05/24 21:34 Dose: Not Given Piperacillin/Tazobactam/Dextrose (Zosyn) 3.375 gm in 50 mls @ 100 mls/hr IV X1 ONE Stop: 10/05/24 22:00 Last Infusion: 10/05/24 22:17 Dose: Infused Dextrose/Sodium Chloride (D5-1/2ns) 1,000 mls @ 165 mls/hr IV .Q6H4M BRITTANY Stop: 11/05/24 04:18 Last Infusion: 10/06/24 10:29 Dose: Infused Sodium Chloride (Ns) 1,000 mls @ 200 mls/hr IV .Q5H [facility] Stop: 11/05/24 12:29 Last Admin: 10/06/24 13:54 Dose: 200 mls/hr Sodium Chloride (Ns) 1,000 mls @ 250 mls/hr IV .Q4H [facility] Stop: 10/07/24 17:46 Last Admin: 10/07/24 14:58 Dose: 250 mls/hr Sodium Chloride (Ns) 1,000 mls @ 250 mls/hr IV .Q4H [facility] Stop: 10/08/24 06:19 Last Infusion: 10/08/24 10:19 Dose: Infused Potassium Phosphate 22.5 mmol/ (Sodium Chloride) 507.5 mls @ 82.778 mls/hr IV X1 ONE Stop: 10/08/24 13:48 Last Admin: 10/08/24 10:15 Dose: 82.778 mls/hr Potassium Phosphate 15 mmol/ (Sodium Chloride) 250 mls @ 80 mls/hr IV X1 ONE Stop: 10/08/24 11:25 Last Admin: 10/08/24 12:01 Dose: Not Given Magnesium Sulfate (Magnesium Sulfate Ivpb) 2 gm in 50 mls @ 25 mls/hr IV X1 ONE Stop: 10/08/24 10:19 Last Infusion: 10/08/24 12:02 Dose: Infused Sodium Chloride (Ns) 1,000 mls @ 250 mls/hr IV .Q4H BRITTANY Stop: 10/08/24 23:04 Last Admin: 10/08/24 22:11 Dose: 250 mls/hr Potassium Phosphate 22.5 mmol/ (Sodium Chloride) 507.5 mls @ 82.778 mls/hr IV X1 ONE Stop: 10/09/24 14:51 Last Admin: 10/09/24 11:25 Dose: 82.778 mls/hr Morphine Sulfate (Morphine Sulf Inj 10 Mg/Ml Vial) 5 mg IVP X1 ONE Stop: 10/05/24 19:56 Last Admin: 10/05/24 20:16 Dose: 5 mg Morphine Sulfate (Morphine Sulf Inj 10 Mg/Ml Vial) 2 mg IVP Q6HR PRN PRN Reason: PAIN SCALE 7-10 (Severe Last Admin: 10/07/24 04:10 Dose: 2 mg Morphine Sulfate (Morphine Sulf Inj 10 Mg/Ml Vial) 2 mg IVP X1 ONE Stop: 10/07/24 00:21 Last Admin: 10/07/24 00:31 Dose: 2 mg Morphine Sulfate (Morphine Sulf Inj 10 Mg/Ml Vial) 4 mg IVP Q6HR PRN PRN Reason: PAIN SCALE 7-10 (Severe Last Admin: 10/07/24 11:57 Dose: 4 mg Ondansetron HCl (Ondansetron Inj 2 Mg/Ml Inj 2 Ml) 4 mg IV X1 ONE; Protocol Stop: 10/05/24 19:56 Last Admin: 10/05/24 20:17 Dose: 4 mg Potassium Phos/Sodium Phos (Naph,[facility] 1 Packet (1.5 Gm)) 1 packet PO X1 ONE Stop: 10/07/24 07:30 Last Admin: 10/07/24 08:24 Dose: 1 packet Potassium Phos/Sodium Phos (Naph,[facility] 1 Packet (1.5 Gm)) 2 packet PO X1 ONE Stop: 10/08/24 08:19 Last Admin: 10/08/24 08:54 Dose: 2 packet Potassium Phos/Sodium Phos (Naph,[facility] 1 Packet (1.5 Gm)) 2 packet PO X1 ONE Stop: 10/09/24 10:38 Last Admin: 10/09/24 12:39 Dose: 2 packet Potassium Phos/Sodium Phos (Naph,[facility] 1 Packet (1.5 Gm)) 2 packet PO X1 ONE Stop: 10/09/24 12:46 Last Admin: 10/09/24 12:42 Dose: Not Given Assessment & Plan Plan Mr. Worley is a 44-year-old male with past medical history as significant for hypertension, asthma and previous NE for which patient underwent 2 stents placed at [facility] in 2019. Patient is admitted to the hospital for further management of acute gallstone pancreatitis. Cardiology team is consulted for preoperative risk assessment for intermediate noncardiac surgery requiring anesthesia. #Hx of NE -Patient has history of NE in 2019 for which patient underwent 2 stents placement on June 05, 2020 and the P RCA and mRCA by Dr.Rafie Lilly -Patient have not been taking any medications other than aspirin 81 Mg daily -Patient is advised to take an ARB, statin and continue aspirin (patient is unable to take beta-daniel due to asthma exacerbation secondary to beta- blockers, as patient frequently gets coughing spells in the setting of asthma patient is less likely to tolerate an ESTUARDO inhibitor) -Cardiac risk index for preoperative risk?estimated risk of cardiac complications after non cardiac surgery is approximately 6% for this patient. RCRI score is 1 -TSH ordered for am labs -A1c ordered for am labs -Echocardiogram ordered -EKG sinus rhythm with no acute ST changes noted #Acute gallstone pancreatitis #Cholelithiasis #Transaminitis -continue management as per primary hospitalist team Assessment and plan discussed with my attending physician Dr. Dennis Mello (PGY-1)- Internal medicine resident
[2024-10-09] MEDS: guaiFENesin/DM TABLET 1 EACH PO (20:27)
--- NOTE | 2024-10-09 21:13 | ESPR_ITS ---
Documentation for date of: 10/09/24 Subjective Subjective Interval history: Patient evaluated Richelle 62 Lipase 42 Phosphate level 1.1 LFTs improving Exam Vital Signs Temp Pulse Resp BP Pulse Ox O2 Del Method O2 Flow Rate 98.6 F 99 18 129/86 H 95 Room Air 2 10/09/24 20:00 10/09/24 20:00 10/09/24 20:00 10/09/24 20:00 10/09/24 20:00 10/09/24 20:00 10/09/24 20:00 Objective Labs 10/09/24 05:39 10/09/24 05:39 Labs: Laboratory Results - last 24 hr 10/09/24 05:39 WBC 11.1 H RBC 5.09 Hgb 14.8 Hct 42.4 MCV 83 MCH 29.1 MCHC 34.9 RDW Std Deviation 36.8 Plt Count 290 Neut % (Auto) 72 Lymph % (Auto) 17 [place] % (Auto) 8 Eos % (Auto) 2 Baso % (Auto) 1 Neut # (Auto) 8.0 H Lymph # (Auto) 1.9 [place] # (Auto) 0.9 H Eos # (Auto) 0.3 Baso # (Auto) 0.1 Immature Gran # (Auto) 0.04 H Absolute Nucleated RBC 0.00 Immature Gran % 0 Nucleated RBC % 0 Sodium 138 Potassium 3.5 Chloride 106 Carbon Dioxide 23.3 Anion Gap 9 BUN 6 L Creatinine 0.6 Estim Creat Clear Calc 138.8 eGFR > 60 BUN/Creatinine Ratio 10 L Glucose 104 Calculated Osmolality 273 L Calcium 8.6 Corrected Calcium 8.7 Phosphorus 1.1 L Magnesium 1.9 Total Bilirubin 0.8 D AST 22 ALT 73 H Alkaline Phosphatase 101 Total Protein 6.7 Albumin 3.9 Globulin 2.8 Albumin/Globulin Ratio 1.4 Amylase 62 Lipase 42 Impressions Impression: # Acute gallstone pancreatitis improving Surgical intervention to be decided by the consulting surgeon Assessment & Plan A&P Narrative # Acute biliary pancreatitis # No evidence at the moment of choledocholithiasis # Abnormal LFTs improving and most likely due to the edema of the head of the pancreas and not choledocholithiasis as a CBD is normal sized Plan Admit the patient as an inpatient Surgical consultation for once the pancreatitis is decompressed and labs normalize Laparoscopic versus open cholecystectomy with intraoperative cholangiogram If the cholangiogram is positive we can always do an postoperative ERCP and I will speak to Dr. Alexander about that Patient does not need a preoperative ERCP for laparoscopic versus open cholecystectomy in this clinical presentation Effective pain control IV fluids Keep patient n.p.o. Thank you very much for the opportunity to participate in the care of this patient Time Spent With Patient Time: Total time spent is greater than 50% in coordination of care (as documented) at patient's floor/unit and/or counseling patient:
[2024-10-10] VITALS (13 sets, daily range): BP systolic 91–156; BP diastolic 75–98; PULSE 78–96; RESP 14–24; TEMP 36.1–36.7; O2SAT 92–98
[2024-10-10] MEDS: MORPHINE SULF INJ 10 MG/ML VIAL 4 MG IVP ×3 (01:44→21:28)
[2024-10-10 06:22] LABS: Basophils # (Auto) 0.1 Thou/mm3 (0.0-0.2); Basophils % (Auto) 1 % (0-2.5); Eosinophils # (Auto) 0.4 Thou/mm3 (0.0-0.5); Eosinophils % (Auto) 4 % (0-10); Hematocrit 42.4 % (41.0-53.0); Hemoglobin 15.1 g/dL (13.5-16.0); Immature Granulocytes % (Auto) 1 % (0-0); Immature Granulocytes Auto 0.05 Thou/mm3 (0.00-0.00); Lymphocytes # (Auto) 2.5 Thou/mm3 (1.0-4.8); Lymphocytes % (Auto) 23 % (10-50); Mean Corpuscular HGB Conc 35.6 g/dl (31.0-37.0); Mean Corpuscular Hemoglobin 29.3 pg (25.0-35.0); Mean Corpuscular Volume 82 fL (80-100); Monocytes # (Auto) 0.9 Thou/mm3 (0.0-0.8); Monocytes % (Auto) 9 % (0-12); Neutrophils # (Auto) 6.7 Thou/mm3 (1.8-7.7); Neutrophils % (Auto) 63 % (37-80); Nucleated Red Blood Cell % 0 /100 WBC (0); Platelet Count 338 Thou/mm3 (140-440); RDW Standard Deviation 36.9 fL (35.1-43.9); Red Blood Count 5.15 Miln/mm3 (4.50-5.90); White Blood Count 10.5 Thou/mm3 (3.8-10.6)
[2024-10-10 06:29] LABS: Prothrombin Time 11.1 Seconds (9.0-12.2)
[2024-10-10 06:44] LABS: Glucose Estimated Average 97 mg/dL (80-131)
[2024-10-10 07:11] LABS: Albumin, Serum 4.1 gm/dL (3.5-5.0); Anion Gap 10 (7-16); BUN/Creatinine Ratio 14 Ratio (12-20); Blood Urea Nitrogen 10 mg/dL (9-23); Carbon Dioxide 23.5 mMol/L (20.0-31.0); Chloride 105 mMol/L (98-107); Creatinine (Component) 0.7 mg/dL (0.6-1.3); Glucose 99 mg/dL (74-106); Osmolality,Calculated 274 (275-295); Phosphorous 2.2 mg/dL (2.4-5.1); Potassium 3.7 mMol/L (3.4-5.1); Sodium 138 mMol/L (136-145); eGFR > 60 See Note
[2024-10-10] MEDS: PANTOPRAZOLE INJ 40 MG VIAL IVP (08:37)
[2024-10-10] MEDS: cefTRIAXone/D5w 1gm IV premix 50 ML IV (08:37)
[2024-10-10] MEDS: POTASSIUM PHOS 22.5 MMOL in SODIUM CHLORIDE 0.9% 500 ML 500 ML 82.778 MMOL IV (09:46)
--- NOTE | 2024-10-10 10:28 | PD.RESPRO ---
Documentation for date of: 10/10/24 Subjective Subjective Interval history: 10/10: No acute overnight events reported. Pt is seen and examined at bedside. Pts and mother are present at bedside. Pt will undergo surgery today. he is saturating on room air. denies, any chest pain, pressure, SOB or palpitations. pt has no other complaints. Exam Vital Signs Temp Pulse Resp BP Pulse Ox O2 Del Method O2 Flow Rate 97.0 F 78 18 127/79 95 Room Air 2 10/10/24 08:00 10/10/24 08:00 10/10/24 08:00 10/10/24 08:00 10/10/24 08:00 10/10/24 08:00 10/10/24 03:59 Narrative Exam GENERAL: A&Ox3 . Awake, Not in acute distress NEURO: no focal neurological deficits HEENT: Atraumatic, Normocephalic. mucous membranes moist. Eyes open, symmetrical, & clear HEART: Normal Heart Sounds LUNGS: Clear to auscultation with no wheezing or crackles. ABDOMEN: soft, non-distended, non-tender, bowel sounds heard, no guarding or rebound tenderness SKIN: No Rash or ecchymoses, multiple tattoos covered bilaterally upper extremities and multiple tattoos on lower extremities bilaterally EXTREMITIES: No edema, tenderness, able to move all 4 extremities, pedal pulses palpated Objective Labs 10/11/24 04:54 10/11/24 04:34 Labs: Laboratory Results - last 24 hr 10/10/24 05:15 WBC 10.5 RBC 5.15 Hgb 15.1 Hct 42.4 MCV 82 MCH 29.3 MCHC 35.6 RDW Std Deviation 36.9 Plt Count 338 D Neut % (Auto) 63 Lymph % (Auto) 23 [place] % (Auto) 9 Eos % (Auto) 4 Baso % (Auto) 1 Neut # (Auto) 6.7 Lymph # (Auto) 2.5 [place] # (Auto) 0.9 H Eos # (Auto) 0.4 Baso # (Auto) 0.1 Immature Gran # (Auto) 0.05 H Absolute Nucleated RBC 0.00 Immature Gran % 1 H Nucleated RBC % 0 PT 11.1 INR 1.0 Sodium 138 Potassium 3.7 Chloride 105 Carbon Dioxide 23.5 Anion Gap 10 BUN 10 Creatinine 0.7 Estim Creat Clear Calc 119.0 eGFR > 60 BUN/Creatinine Ratio [address] Glu mg/dL 97 Hemoglobin A1c 5.0 Calculated Osmolality 274 L Calcium 9.0 Corrected Calcium 9.0 Phosphorus 2.2 L Magnesium 2.0 Albumin 4.1 TSH 2.40 Quality Measures Quality Measures none Assessment & Plan Assessment Current Active Medications: Generic Name Dose Route Start Last Admin Trade Name Freq PRN Reason Stop Dose Admin Acetaminophen 650 mg 10/06/24 12:27 10/08/24 06:24 Acetaminophen 325 Mg Tablet PO 11/05/24 12:26 650 mg Q6H PRN Administration Pain 1-3 or Fever >100.3 Albuterol/Ipratropium 3 ml 10/09/24 13:49 10/09/24 14:00 Albuterol/Ipratropium (Duoneb) Rt Nan 3 Ml Nebu INH 11/08/24 14:59 3 ml Q4HRRT PRN Administration SOB or wheeze Amlodipine Besylate 10 mg 10/07/24 10:45 10/09/24 08:54 Amlodipine Besylate 5 Mg Tablet PO 11/06/24 10:44 10 mg QDAY BRITTANY Administration Guaifenesin/Dextromethorphan 1 each 10/09/24 21:00 10/09/24 20:27 Guaifenesin/Dm Tablet PO 11/08/24 20:59 1 each BID BRITTANY Administration Heparin Sodium (Porcine) 5,000 unit 10/06/24 21:00 10/09/24 20:27 Heparin Sod Inj 5000 Unit/Ml Vial SC 10/20/24 20:59 5,000 unit Q12HR BRITTANY Administration Hydromorphone HCl 1 mg 10/07/24 11:02 10/09/24 02:46 Hydromorphone Inj 2 Mg/Ml Vial IVP 10/12/24 09:53 1 mg Q4HR PRN Administration BREAKTHROUGH PAIN (SEVERE) Ceftriaxone Sodium/Dextrose 50 mls @ 100 mls/hr 10/06/24 12:38 10/10/24 08:37 Rocephin/D5w 1gm Iv Premix IV 10/13/24 12:37 100 mls/hr QDAY BRITTANY Administration Potassium Phosphate 22.5 mmol/ 507.5 mls @ 82.778 mls/hr 10/10/24 07:53 10/10/24 09:46 Sodium Chloride IV 10/10/24 14:00 82.778 mls/hr X1 ONE Administration Morphine Sulfate 4 mg 10/07/24 12:48 10/10/24 01:44 Morphine Sulf Inj 10 Mg/Ml Vial IVP 10/12/24 12:47 4 mg Q6HR PRN Administration pain 6-10 Ondansetron HCl 4 mg 10/06/24 12:27 10/06/24 20:01 Ondansetron Inj 2 Mg/Ml Inj 2 Ml IV 11/05/24 12:26 4 mg Q6H PRN Administration NAUSEA OR VOMITING Protocol Pantoprazole Sodium 40 mg 10/06/24 12:45 10/10/24 08:37 Pantoprazole Inj 40 Mg Vial IVP 11/05/24 12:44 40 mg QDAY BRITTANY Administration Sennosides 1 tab 10/07/24 09:00 10/09/24 08:54 Senna Tablet PO 11/06/24 08:59 1 tab QDAY BRITTANY Administration Protocol Plan Mr. Worley is a 44-year-old male with past medical history as significant for hypertension, asthma and previous VA for which patient underwent 2 stents placed at [facility] in 2019. Patient is admitted to the hospital for further management of acute gallstone pancreatitis. Cardiology team is consulted for preoperative risk assessment for intermediate non cardiac surgery requiring anesthesia. #Hx of VA -Patient has history of VA in 2019 for which patient underwent 2 stents placement on June 05, 2020 and the P RCA and mRCA by Dr.Rafie Lilly -Patient have not been taking any medications other than aspirin 81 Mg daily -Patient is advised to take an ARB, statin and continue aspirin (patient is unable to take beta-daniel due to asthma exacerbation secondary to beta-blockers, as patient frequently gets coughing spells in the setting of asthma patient is less likely to tolerate an ESTUARDO inhibitor) -Cardiac risk index for preoperative risk?estimated risk of cardiac complications after non cardiac surgery is approximately 6% for this patient. RCRI score is 1 -TSH 2.40 -A1c 5.0 -Echocardiogram ordered- showed normal LV function and RV function with an EF of around 65%. There is only trace to mild valvular abnormalities. -EKG sinus rhythm with no acute ST or T wave changes noted -Pt is at acceptable cardiac risk for the surgery and recommend to proceed with the surgery with no further cardiac testing. -Continue aspirin perioperatively. #Acute gallstone pancreatitis #Cholelithiasis -Ultrasound showed cholelithiasis negative for cholestasis CBD was 0.[address] abdomen pelvis showed severe acute pancreatitis with no pseudocyst. Patient diagnosed with acute biliary/gallstone pancreatitis and GI and surgical team were consulted. Decision was made to perform cholecystectomy with intraoperative cholangiogram. Assessment and plan discussed with my attending physician Dr. Dennis Mello (PGY-1)- Internal medicine resident Attending Provider Attestation/Addendum I have personally seen and examined the patient separately on the above date of service and discussed the plan of care with the resident. I reviewed the resident Dr. Dany Mello consultation progress note and agree with the resident findings and plan in the note above and have also edited the documentation to reflect my findings and plan. Patient doing well and is n.p.o. for the surgery today. Patient is mildly elevated but acceptable cardiac risk for the surgery and recommend no further cardiac testing for now as detailed in yesterday's note. Rest of the vitals and labs are stable. Recommend to continue aspirin and statin as well as ESTUARDO or ARB and will add beta-daniel prior to discharge if blood pressure high. Jeramy Collins M.D. Interventional Cardiology
--- NOTE | 2024-10-10 13:13 | PD.IMPROG ---
Documentation for date of: 10/10/24 Subjective Subjective Interval history: Patient evaluated He is status post laparoscopic cholecystectomy no intraoperative cholangiogram was thought necessary by the surgeon Exam Vital Signs Temp Pulse Resp BP Pulse Ox O2 Del Method O2 Flow Rate 97.0 F 78 18 127/79 95 Room Air 2 10/10/24 08:00 10/10/24 08:00 10/10/24 08:00 10/10/24 08:00 10/10/24 08:00 10/10/24 08:00 10/10/24 03:59 Objective Labs 10/10/24 05:15 10/10/24 05:15 Labs: Laboratory Results - last 24 hr 10/10/24 05:15 WBC 10.5 RBC 5.15 Hgb 15.1 Hct 42.4 MCV 82 MCH 29.3 MCHC 35.6 RDW Std Deviation 36.9 Plt Count 338 D Neut % (Auto) 63 Lymph % (Auto) 23 [place] % (Auto) 9 Eos % (Auto) 4 Baso % (Auto) 1 Neut # (Auto) 6.7 Lymph # (Auto) 2.5 [place] # (Auto) 0.9 H Eos # (Auto) 0.4 Baso # (Auto) 0.1 Immature Gran # (Auto) 0.05 H Absolute Nucleated RBC 0.00 Immature Gran % 1 H Nucleated RBC % 0 PT 11.1 INR 1.0 Sodium 138 Potassium 3.7 Chloride 105 Carbon Dioxide 23.5 Anion Gap 10 BUN 10 Creatinine 0.7 Estim Creat Clear Calc 119.0 eGFR > 60 BUN/Creatinine Ratio [address] Glu mg/dL 97 Hemoglobin A1c 5.0 Calculated Osmolality 274 L Calcium 9.0 Corrected Calcium 9.0 Phosphorus 2.2 L Magnesium 2.0 Albumin 4.1 TSH 2.40 # Impressions Impression: # Status post laparoscopic cholecystectomy for biliary pancreatitis continue present treatment Assessment & Plan A&P Narrative # Acute biliary pancreatitis # No evidence at the moment of choledocholithiasis # Abnormal LFTs improving and most likely due to the edema of the head of the pancreas and not choledocholithiasis as a CBD is normal sized Plan Admit the patient as an inpatient Surgical consultation for once the pancreatitis is decompressed and labs normalize Laparoscopic versus open cholecystectomy with intraoperative cholangiogram If the cholangiogram is positive we can always do an postoperative ERCP and I will speak to Dr. Benjamin about that Patient does not need a preoperative ERCP for laparoscopic versus open cholecystectomy in this clinical presentation Effective pain control IV fluids Keep patient n.p.o. Thank you very much for the opportunity to participate in the care of this patient Time Spent With Patient Time: Total time spent is greater than 50% in coordination of care (as documented) at patient's floor/unit and/or counseling patient:
--- NOTE | 2024-10-10 13:50 | PD.SUROPNT ---
Date of Procedure 10/10/24 Pre Op Diagnosis Gallstone pancreatitis Cholelithiasis Post Op Diagnosis Same Procedure Laparoscopic cholecystectomy Findings Patient was found to have numerous stones in the gallbladder Procedure Description After endotracheal anesthesia was given the patient was placed in supine position and the abdomen was prepped with chloroprep solution and draped in a sterile manner. After time out was performed I injected a few cc of of half percent Marcaine with epinephrine below the umbilicus and I made an incision for about 3 cm in length. The fascia was cleaned and Veress needle was inserted to create a pneumoperitoneum up to 15 mmHg. Then introduced a 12 mm trocar and a 10 mm camera through the fascia and I inspected the intra-abdominal organs as well as the gallbladder and the liver. Another 5 mm trocar was inserted in the epigastric region under direct vision after injecting some local anesthesia. At this time the patient was kept in reverse Trendelenburg position with the left lateral tilt. The third 5 mm trocar was inserted over the mid axillary line under direct vision and a Daniel and Mary Jane grasper was used to hold the fundus of the gallbladder. The retraction was carried out by the assistant finance director moving the fundus of the gallbladder towards the right shoulder of the patient to create enough traction. I placed a another 5 mm trocar in the midaxillary line just lateral to the rectus muscle under direct vision. I used a fenestrated grasper to retract the neck of the gallbladder laterally towards the patient's right hip. The Calot's triangle was exposed and I achieved the critical view of safety as follows: I dissected out the fatty tissue from the hepatocystic triangle and cleared this area. I also dissected inferior and posterior to the gallbladder to identify the cystic duct and the gallbladder wall. Then superiorly I dissected along the cystic plate up to lower one third third of the gallbladder to lift the gallbladder from the liver. At this time I confirmed that only 2 structures entering the gallbladder were cystic artery and the cystic duct. The common duct was seen distally but no dissection was carried out around the duct. I did not see any need for operative cholangiogram in this patient. The cystic duct was clipped doubly and then divided and cystic artery was similarly dealt with. Then the gallbladder was removed from the liver bed using Harmonic tali to control the small blood vessels as the dissection proceeded. Then the gallbladder was from the liver bed completely and delivered through the umbilical port using an Endopouch. The liver bed was coagulated with cautery to obtain satisfactory hemostasis. I left a Surgicel at the base of the gallbladder bed to control the oozing. The trocars were pulled out from the abdominal cavity and the fascia at the umbilical incision was closed with interrupted 0 Ethibond. Subcutaneous tissues was closed with 3-0 chromic and injected a few cc of half percent Marcaine with epinephrine and the skin was closed with interrupted 4-0 Monocryl subcuticular stitches at all the trocar sites. Dressing was applied with 2 x 2 and Tegaderm. Patient tolerated the procedure well and returned to recovery room in stable condition. Anesthesia GETA Pathology / specimen Other (Gallbladder and the stones) Estimated Blood Loss 50 Surgeon Cecille Hawley MD Surgical Staff Operation Date: 10/10/24 10:45 Case Staff LEAD MANUFACTURING ENGINEERING TECH: srna. CALLESsenior manager quality assurance: Ro Bond
--- NOTE | 2024-10-10 14:17 | PC.SS ---
rounding note: Patient to have surgery today.
--- NOTE | 2024-10-10 14:23 | SUR.PHASEI ---
1340: pt arrived to PACU via gurney with oral airway present, breathing unlabored, dressing to abdomen clean, dry, and intact, report from Haroldo CALLES, Brennan MERIDA, and Cece SHUKLA 1423: pt awake, alert, breathing unlabored, tolerating ice chips without difficulty swallowing or n/v, VS stable, report called to Ro CALLES, pt transferred to room at this time.
--- NOTE | 2024-10-10 15:55 | ESPR_ITS ---
Documentation for date of: 10/10/24 Subjective Subjective Interval history: Patient seen at bedside. No acute overnight events. He reports that he has no pain at all and has been tolerating even advance diet. Patient has been cleared for surgery by cardiology and has been scheduled for cholecystectomy today with general surgeon Dr. Byers. Blood pressure on the lower side today, will hold amlodipine 10 mg. Labs reviewed, phosphorus at 2.2 will replete with K-Phos. 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 Eyes open, symmetrical, & clear CARDIO: No chest pain on palpation. Heart RRR, no obvious murmurs PULM: No noted coughing/dyspnea. Lungs CTA B/L GI: Abdomen soft, nondistended, no pain on palpation. BSx4 URO/COLLAR SETTER:: No further abnormalities noted. SKIN/MSK/EXT: No wounds/rashes/edema/amputations, no pain on palpation. Pedal pulses present B/L Objective Labs 10/11/24 04:54 10/11/24 04:34 Labs: Laboratory Results - last 24 hr 10/10/24 05:15 WBC 10.5 RBC 5.15 Hgb 15.1 Hct 42.4 MCV 82 MCH 29.3 MCHC 35.6 RDW Std Deviation 36.9 Plt Count 338 D Neut % (Auto) 63 Lymph % (Auto) 23 [place] % (Auto) 9 Eos % (Auto) 4 Baso % (Auto) 1 Neut # (Auto) 6.7 Lymph # (Auto) 2.5 [place] # (Auto) 0.9 H Eos # (Auto) 0.4 Baso # (Auto) 0.1 Immature Gran # (Auto) 0.05 H Absolute Nucleated RBC 0.00 Immature Gran % 1 H Nucleated RBC % 0 PT 11.1 INR 1.0 Sodium 138 Potassium 3.7 Chloride 105 Carbon Dioxide 23.5 Anion Gap 10 BUN 10 Creatinine 0.7 Estim Creat Clear Calc 119.0 eGFR > 60 BUN/Creatinine Ratio [address] Glu mg/dL 97 Hemoglobin A1c 5.0 Calculated Osmolality 274 L Calcium 9.0 Corrected Calcium 9.0 Phosphorus 2.2 L Magnesium 2.0 Albumin 4.1 TSH 2.40 Quality Measures Quality Measures none Assessment & Plan Assessment Current Active Medications: Generic Name Dose Route Start Last Admin Trade Name Freq PRN Reason Stop Dose Admin Acetaminophen 650 mg 10/06/24 12:27 10/08/24 06:24 Acetaminophen 325 Mg Tablet PO 11/05/24 12:26 650 mg Q6H PRN Administration Pain 1-3 or Fever >100.3 Albuterol/Ipratropium 3 ml 10/09/24 13:49 10/09/24 14:00 Albuterol/Ipratropium (Duoneb) Rt Nan 3 Ml Nebu INH 11/08/24 14:59 3 ml Q4HRRT PRN Administration SOB or wheeze Amlodipine Besylate 10 mg 10/07/24 10:45 10/09/24 08:54 Amlodipine Besylate 5 Mg Tablet PO 11/06/24 10:44 10 mg QDAY BRITTANY Administration Guaifenesin/Dextromethorphan 1 each 10/09/24 21:00 10/10/24 15:07 Guaifenesin/Dm Tablet PO 11/08/24 20:59 Not Given BID BRITTANY Hydromorphone HCl 1 mg 10/07/24 11:02 10/09/24 02:46 Hydromorphone Inj 2 Mg/Ml Vial IVP 10/12/24 09:53 1 mg Q4HR PRN Administration BREAKTHROUGH PAIN (SEVERE) Morphine Sulfate 4 mg 10/07/24 12:48 10/10/24 14:48 Morphine Sulf Inj 10 Mg/Ml Vial IVP 10/12/24 12:47 4 mg Q6HR PRN Administration pain 6-10 Ondansetron HCl 4 mg 10/06/24 12:27 10/06/24 20:01 Ondansetron Inj 2 Mg/Ml Inj 2 Ml IV 11/05/24 12:26 4 mg Q6H PRN Administration NAUSEA OR VOMITING Protocol Pantoprazole Sodium 40 mg 10/06/24 12:45 10/10/24 08:37 Pantoprazole Inj 40 Mg Vial IVP 11/05/24 12:44 40 mg QDAY BRITTANY Administration Sennosides 1 tab 10/07/24 09:00 10/10/24 15:07 Senna Tablet PO 11/06/24 08:59 Not Given QDAY [facility] Protocol Plan Summary: The patient is a 44-year-old female with a past medical history of myocardial infarction and gallstones presented to the ED on 10/05/2024 with complaints of abdominal pain. He has been admitted for management of acute pancreatitis. #Acute gallstone pancreatitis. #Cholelithiasis. #Transaminitis. The patient presented with a 2-day history of abdominal pain located in the epigastric and right upper quadrant, rated as a 9/10 in severity, nonradiating to the back but a little worse when lying in supine position. He denies any association with meals any new medications or any trauma to the abdominal region. Patient also denies fever, but endorses nausea, no vomiting diarrhea or constipation. In the ED, he was afebrile but tachycardic. Labs showed hyperbilirubinemia of 1.3, down trended from 3 in the last 3 months as well as leukocytosis with WBC of 16 elevated transaminases but normal ALP and lipase >3500. CT abdomen showed severe acute pancreatitis and no pseudocyst. Initial plan was for an MRCP to be acquired breast patient has piercings is impossible to do and ERCP was considered. Discussed with ED doctor and GI Dr. Valenzuela extensively, recommends to admit the patient for acute pancreatitis and the patient should require ERCP, Dr. Alexander will be available for procedure. 10/10/2024- Patient is tolerating diet well and no longer has any abdominal pain. Cleared by cardiology for surgery. Plan: -NPO for cholecystectomy today -Continue IV ceftriaxone. -Surgery consulted, appreciate recommendations. #Hypertension Patient reports a history of hypertension, but has never been on any medications. Blood pressure on admission has been ranging between 150 and 160s. 10/10/2024- Blood pressure today soft, will hold amlodipine. Plan: -Hold amlodipine #History of asthma The patient has a history of asthma and uses a rescue albuterol inhaler at home. He had some chest tightness and wheezing today, his inhaler didnt help. Plan: -Duonebs PRN -Plan for long acting beta agonist on discharge. Health maintenance: Dispo: MedSurg,NPO- surgery today Diet: low fat GI: Pantoprazole DVT: SC Heparin Lines: Peripheral PT: Not ordered Code: Full Case was discussed with Dr Jimenez PGY-2 and attending physician, Dr Alison Truong MD PGY-1 Patient is a 44 year old male admitted for management of acute pancreatitis. CT abdomen pelvis was remarkable for severe pancreatitis and lipase >3500 on 10/05/2024 at presentation. General surgery was consulted for gallstone pancreatitis in the setting of cholelithiasis. Patient was treated with aggressive IV fluids, he is net +10L during the hospitalization, he is now tolerating diet comfortably. Cardiac clearance received in 10/09 for surgical intervention. Dispo: lap cholecystectomy by Dr Byers today. Will evaluate post-op. Patient examined and case discussed with the team including attending physician. Note reviewed, I agree with the care plan as documented. - Teo Jimenez MD, PGY 2 Attending Provider Attestation/Addendum I reviewed labs, imaging, EKG, home medications and prior available records. Face to face evaluation was performed by me. I have personally examined the patient and discussed assessment and plan with the IM team. I reviewed the resident note and agree with the plan with exceptions as below. Acute pancreatitis: In the setting of cholelithiasis. Continue IV fluids. Management of pain/nausea/vomiting as needed. N.p.o. after midnight for cholecystectomy Cholelithiasis: Consult to surgery. Plan for cholecystectomy on 10/10. N.p.o. prior to the surgery
[2024-10-10] MEDS: HYDROmorphone INJ 2 MG/ML VIAL 1 MG IVP (18:47)
[2024-10-11] VITALS (8 sets, daily range): BP systolic 114–147; BP diastolic 72–95; PULSE 87–100; RESP 17–96; TEMP 36.7–37.4; O2SAT 94–98
[2024-10-11] MEDS: HYDROmorphone INJ 2 MG/ML VIAL 1 MG IVP (01:21)
[2024-10-11] MEDS: MORPHINE SULF INJ 10 MG/ML VIAL 4 MG IVP ×2 (05:55→08:50)
[2024-10-11 06:27] LABS: Albumin, Serum 4.1 gm/dL (3.5-5.0); Anion Gap 8 (7-16); BUN/Creatinine Ratio 16 Ratio (12-20); Blood Urea Nitrogen 11 mg/dL (9-23); Carbon Dioxide 23.7 mMol/L (20.0-31.0); Chloride 104 mMol/L (98-107); Creatinine (Component) 0.7 mg/dL (0.6-1.3); Glucose 160 mg/dL (74-106); Osmolality,Calculated 274 (275-295); Phosphorous 2.3 mg/dL (2.4-5.1); Sodium 136 mMol/L (136-145); eGFR > 60 See Note
[2024-10-11] MEDS: amLODIPine BESYLATE 5 MG TABLET 10 MG PO (08:47)
[2024-10-11 08:49] LABS: Basophils % (Auto) 0 % (0-2.5); Eosinophils % (Auto) 0 % (0-10); Hematocrit 42.7 % (41.0-53.0); Hemoglobin 14.6 g/dL (13.5-16.0); Immature Granulocytes % (Auto) 0 % (0-0); Immature Granulocytes Auto 0.06 Thou/mm3 (0.00-0.00); Lymphocytes # (Auto) 0.9 Thou/mm3 (1.0-4.8); Lymphocytes % (Auto) 6 % (10-50); Mean Corpuscular HGB Conc 34.2 g/dl (31.0-37.0); Mean Corpuscular Hemoglobin 28.7 pg (25.0-35.0); Mean Corpuscular Volume 84 fL (80-100); Monocytes # (Auto) 0.7 Thou/mm3 (0.0-0.8); Monocytes % (Auto) 5 % (0-12); Neutrophils # (Auto) 12.1 Thou/mm3 (1.8-7.7); Neutrophils % (Auto) 88 % (37-80); Nucleated Red Blood Cell % 0 /100 WBC (0); Platelet Count 365 Thou/mm3 (140-440); RDW Standard Deviation 36.7 fL (35.1-43.9); Red Blood Count 5.09 Miln/mm3 (4.50-5.90); White Blood Count 13.7 Thou/mm3 (3.8-10.6)
[2024-10-11] MEDS: PANTOPRAZOLE INJ 40 MG VIAL IVP (08:49)
[2024-10-11] MEDS: SENNA TABLET 1 TAB PO (08:51)
[2024-10-11] MEDS: NAPH,KPH MBDB 1 PACKET (1.5 GM) PO (11:50)
--- NOTE | 2024-10-11 12:00 | PC.NURSE ---
assumed care of patient, pt alert and poriented gcs 15 no signs of distress noted
--- NOTE | 2024-10-11 13:25 | PD.IMPROG ---
Documentation for date of: 10/11/2024 Subjective Subjective Interval history: Patient seen and examined at the bedside No new cardiac complaints. Cholecystectomy was completed on 10/10/2024 with no cardiac applications. Patient denies any Chest pain chest pressure or other cardiac complaints. Patient recommended to continue to take aspirin 81 mg once daily, high intensity statin along with ESTUARDO or ARB. Blood pressure is high and recommend to start patient on metoprolol XL as patient also has history of CAD status post PCI in 2019. Patient recommended to follow-up with cardiology in 7 days. Exam Vital Signs Temp Pulse Resp BP Pulse Ox O2 Del Method O2 Flow Rate 99 F 95 18 147/80 H 96 Room Air 8 10/11/24 13:13 10/11/24 13:13 10/11/24 13:13 10/11/24 13:13 10/11/24 13:13 10/11/24 13:13 10/10/24 13:55 Narrative Exam GENERAL: A&Ox3 . Awake, Not in acute distress NEURO: no focal neurological deficits HEENT: Atraumatic, Normocephalic. mucous membranes moist. Eyes open, symmetrical, & clear HEART: Normal Heart Sounds LUNGS: Clear to auscultation with no wheezing or crackles. ABDOMEN: soft, non-distended, non-tender, bowel sounds heard, no guarding or rebound tenderness SKIN: No Rash or ecchymoses, multiple tattoos covered bilaterally upper extremities and multiple tattoos on lower extremities bilaterally EXTREMITIES: No edema, tenderness, able to move all 4 extremities, pedal pulses palpated Objective Labs 10/11/24 04:54 10/11/24 04:34 Labs: Laboratory Results - last 24 hr 10/11/24 10/11/24 04:34 04:54 WBC 13.7 H RBC 5.09 Hgb 14.6 Hct 42.7 MCV 84 MCH 28.7 MCHC 34.2 RDW Std Deviation 36.7 Plt Count 365 Neut % (Auto) 88 H Lymph % (Auto) 6 L Buchanan % (Auto) 5 Eos % (Auto) 0 Baso % (Auto) 0 Neut # (Auto) 12.1 H Lymph # (Auto) 0.9 L Buchanan # (Auto) 0.7 Eos # (Auto) 0.0 Baso # (Auto) 0.0 Immature Gran # (Auto) 0.06 H Absolute Nucleated RBC 0.00 Immature Gran % 0 Nucleated RBC % 0 Sodium 136 Potassium 4.0 Chloride 104 Carbon Dioxide 23.7 Anion Gap 8 BUN 11 Creatinine 0.7 Estim Creat Clear Calc 119.0 eGFR > 60 BUN/Creatinine Ratio 16 Glucose 160 H D Calculated Osmolality 274 L Calcium 9.0 Corrected Calcium 9.0 Phosphorus 2.3 L Magnesium 2.0 Albumin 4.1 Assessment & Plan A&P Narrative Mr. Worley is a 44-year-old male with past medical history as significant for hypertension, asthma and previous SD for which patient underwent 2 stents placed at [facility] in 2019. Patient is admitted to the hospital for further management of acute gallstone pancreatitis. Cardiology team is consulted for preoperative risk assessment for intermediate non cardiac surgery requiring anesthesia. #Hx of SD -Patient has history of SD in 2019 for which patient underwent 2 stents placement on June 05, 2020 and the P RCA and mRCA by Dr.Rafie Lilly -Patient have not been taking any medications other than aspirin 81 Mg daily -Patient is advised to take an ARB, statin and continue aspirin (patient is unable to take beta-daniel due to asthma exacerbation secondary to beta-blockers, as patient frequently gets coughing spells in the setting of asthma patient is less likely to tolerate an ESTUARDO inhibitor) -Cardiac risk index for preoperative risk?estimated risk of cardiac complications after non cardiac surgery is approximately 6% for this patient. RCRI score is 1 -TSH 2.40 -A1c 5.0 -Echocardiogram ordered- showed normal LV function and RV function with an EF of around 65%. There is only trace to mild valvular abnormalities. -EKG sinus rhythm with no acute ST or T wave changes noted -Pt is at acceptable cardiac risk for the surgery and recommend to proceed with the surgery with no further cardiac testing. -Continue aspirin perioperatively. 10/11/2024 Cholecystectomy was completed on 10/10/2024 with no cardiac applications. Patient denies any Chest pain chest pressure or other cardiac complaints. Patient recommended to continue to take aspirin 81 mg once daily, high intensity statin along with ESTUARDO or ARB. Blood pressure is high and recommend to start patient on metoprolol XL as patient also has history of CAD status post PCI in 2019. Patient recommended to follow-up with cardiology in 7 days. #Acute gallstone pancreatitis #Cholelithiasis -Ultrasound showed cholelithiasis negative for cholestasis CBD was 0.[address] abdomen pelvis showed severe acute pancreatitis with no pseudocyst. Patient diagnosed with acute biliary/gallstone pancreatitis and GI and surgical team were consulted. Decision was made to perform cholecystectomy with intraoperative cholangiogram. Time Spent With Patient Time: Total time spent is greater than 50% in coordination of care (as documented) at patient's floor/unit and/or counseling patient:
--- NOTE | 2024-10-11 16:50 | PD.RESDS ---
Planned Discharge Date 10/11/24 DS: Providers Provider Date of admission: 10/06/24 12:28 Primary care physician: Physician No Primary/Family Admitting Provider: Alexx Mansfield MD Attending Provider on Admission: Jamie Rosas MD Consults: 10/06/24 10:56 Consult to Gastroenterology Stat Comment: Consulting Provider: Tao Valenzuela 10/07/24 10:45 Consult to General Surgery Routine Comment: Consulting Provider: Cecille Hawley 10/08/24 16:38 Consult to Cardiology Urgent Comment: cardiac clearance Consulting Provider: Jeramy Collins Attending Provider on DC: Manju Truong MD Discharging Provider: Manju Truong MD DS: Diagnosis Problem List Completed Was Problem List Reviewed/Reconciled?: Yes Hospital Course Hospital Course Hospital course: The patient is a 44-year-old male with a past medical history of myocardial infarction status post stent, 1 episode of seizure in the past and asthma who presented to the ED on 10/05/2024 with abdominal pain. Patient describes pain as stabbing, rating the severity of 9 out of 10, located in the epigastric and right upper quadrant without radiation. He had had a similar attack of pain about a year ago after which she was told he had gallstones but no surgical intervention was done. In the ED, patient was in severe pain but afebrile labs were significant for leukocytosis, hyperbilirubinemia and transaminitis with lipase greater than 3500. Gallbladder ultrasound was done which showed cholelithiasis but was negative for cholecystitis and CBD was normal. CT abdomen pelvis showed severe acute pancreatitis. The patient was admitted for management of acute pancreatitis and was started on aggressive fluid resuscitation. On day 3 of admission, patient was completely pain-free and tolerating diet. Surgery was consulted and after cardiac clearance, the patient had laparoscopic cholecystectomy on 10/07/2024. Today, the patient is clinically and hemodynamically stable and is still tolerating diet. He is medically cleared for discharge. Per cardiology, the patient is recommended to be discharged on aspirin, losartan and metoprolol as well as atorvastatin and follow-up within 2 weeks of discharge. He is also recommended to follow-up with his primary care provider or the [facility] within 1 week of discharge as well as surgeon Dr. Byers. #Acute gallstone pancreatitis s/p cholecystectomy #History of CA #History of asthma Discharge instructions: Follow up with your PCP within one week of discharge. If you don't have a PCP, you can follow with the [facility] at [address] , [address] Call [phone] to make an appointment - Take Aspirin 81mg daily - Start Losartan 50mg daily for BP control - Start Metoprolol XL 50mg daily for cardiac risk factors - Take Atorvastatin 80mg every night for cardiac optimization - We have added a control medication for your asthma, use as prescribed Follow up with surgeon Dr Oden on October. Call [phone] for an appointment Case was discussed with Dr Huggins PGY-2 and attending physician, Dr Alison Truong MD PGY-1 Status at Discharge Overall status at discharge: patient is back to baseline Time Spent with Patient Time attestation: Total time spent providing and/or coordinating discharge services: Time spent: Greater than 30 minutes Exam Vital Signs Temp Pulse Resp BP Pulse Ox O2 Del Method O2 Flow Rate 99 F 95 18 147/80 H 96 Room Air 8 10/11/24 13:13 10/11/24 13:13 10/11/24 13:13 10/11/24 13:13 10/11/24 13:13 10/11/24 13:13 10/10/24 13:55 Narrative Exam GENERAL: AAOX3 NEURO: PRECISION MILLWRIGHT grossly intact, moves extremities x4 HEENT: Moist mucosa. Eyes open, symmetrical, & clear CARDIO: No chest pain on palpation. Heart RRR, no obvious murmurs PULM: No noted coughing/dyspnea. Lungs CTA B/L GI: Abdomen soft, nondistended, no pain on palpation. BSx4 URO/MECHANICAL TEST TECHNICIAN:: No further abnormalities noted. SKIN/MSK/EXT: No wounds/rashes/edema/amputations, no pain on palpation. Pedal pulses present B/L Discharge Plan Plan Patient Disposition: HOME (Self Care) Disposition Comment: MS Patient condition on transfer: Stable Prescriptions/Referrals Prescriptions/Med Rec: New budesonide-formoterol 160-4.5 mcg/actuation HFA aerosol inhaler 2 puff inhalation BID 30 Days Qty: 10.2 1RF celecoxib [Celebrex] 100 mg capsule 100 mg PO BID PRN (Reason: pain) 3 Days Qty: 6 0RF metoprolol succinate 50 mg capsule,sprinkle,ER 24hr 50 mg PO QDAY 30 Days Qty: 30 0RF losartan 50 mg tablet 50 mg PO QDAY 30 Days Qty: 30 0RF atorvastatin 80 mg tablet 80 mg PO QPM 30 Days Qty: 30 0RF aspirin 81 mg tablet,delayed release (DR/EC) 81 mg PO QDAY 30 Days Qty: 30 0RF Discontinued prednisone 50 mg tablet 50 mg PO QDAY Qty: 5 0RF Referrals: No Primary/Family,Physician [Primary Care Provider] - Cecille Hawley MD [Physician] - Patient/Caregiver Discharge Instructions Other Discharge Activity Instructions:: Follow up with your PCP within one week of discharge. If you don't have a PCP, you can follow with the [facility] at [address] , [address] Call [phone] to make an appointment - Take Aspirin 81mg daily - Start Losartan 50mg daily for BP control - Start Metoprolol XL 50mg daily for cardiac risk factors - Take Atorvastatin 80mg every night for cardiac optimization - We have added a control medication for your asthma, use as prescribed Follow up with surgeon Dr Oden on October. Call [phone] for an appointment Remove abdominal dressings from abdomen and shower tomorrow Education Materials: Preventing Surgical Site Infections Print Language: Amharic Activity Restrictions/Additional Instructions: Regular diet Remove dressings from the abdomen and shower tomorrow Activities as tolerated Pain medication as prescribed Follow-up in my office on October. Call [phone] for an appointment time Stand Alone Forms: Cynthia Award Info., Patient Portal Info Letter Discharge Order Discharge Orders: Discharge (Routine); Ordered 10/11/24 Ordered By: Cecille Hawley Quality Discharge Quality Measures VTE prophylaxis Attestestation Attestation I reviewed labs, imaging, EKG, home medications and prior available records. Face to face evaluation was performed by me. I have personally examined the patient and discussed assessment and plan with the IM team. I reviewed the resident note and agree with the plan with exceptions as below. Acute pancreatitis: In the setting of cholelithiasis. He tolerated his diet and his symptoms are minimal. Okay to discharge from surgical standpoint. Follow-up with surgery as outpatient. Low-fat diet. Avoid alcohol. Cholelithiasis: Status post laparoscopic cholecystectomy on 10/10. Management as above Leukocytosis: Likely reactive in the setting of surgery. Monitor CBC in 1 week Time spent is 40 minutes. More than 50% of the time was spent on patient education and coordination of care.
== END 2024-10-11 13:33 | disposition home or self-care (01) | DRG 263 ==
LOC: SERX 10-06 06:59 → SERHOLD 10-06 13:05 → S3NX 10-06 16:39
PROVIDERS: Physician Assistant; Surgery; Admitting Provider Internal Medicine; Emergency Provider Emergency Medicine; Referring Provider Emergency Medicine; Visit Provider Student in an Organized Health Care Education/Training Program
PROC: 0FT44ZZ Resection of Gallbladder, Percutaneous Endoscopic Approach (ICD-10-PCS; CPT 47562; principal; 2024-10-10 10:30)
DX: K85.10 Biliary acute pancreatitis without necrosis or infection (principal); K80.20 Calculus of gallbladder without cholecystitis without obstruction; I25.2 Old myocardial infarction; E83.52 Hypercalcemia; I25.10 Atherosclerotic heart disease of native coronary artery without angina pectoris; J45.909 Unspecified asthma, uncomplicated; I10 Essential (primary) hypertension; E83.39 Other disorders of phosphorus metabolism; Z95.5 Presence of coronary angioplasty implant and graft; Z79.899 Other long term (current) drug therapy; Z79.82 Long term (current) use of aspirin
CPT/HCPCS: 36415; 74176; 76705; 80053; 80061; 80069; 80307; 80320; 81001; 82150; 83036; 83690; 83735; 84100; 84443; 85025; 85610; 87040; 93005; 93306; 94640; 94664; 96361; 96365; 96374; 96375; 96376; 99285; A4217; A4649; A9270; J0131; J0360; J0696; J1100; J1643; J2250; J2270; J2371; J2405; J2470; J2543; J2704; J3010; J3475; J3490; J7030; J7040; J7042; G0480

== ENCOUNTER 2025-02-27 09:01 | Outpatient (AMB) | payer MEDICAID, SELFPAY ==
--- NOTE | 2025-02-27 09:35 | ACNOTE_ITS ---
Vital Signs 02/27/25 09:36 Height 1.68 m Height Method Stated Weight 79.889 kg Weight Measurement Method Standing Scale BMI 28.3 BP 143/91 H Blood Pressure Source Automatic Cuff Blood Pressure Location Right Upper Arm Position Sitting Respiration 18 Pulse 84 Pulse Source Monitor Temp 98.2 F Temp Source Temporal Artery Scan Pulse Oximetry (%) 98 Oxygen Delivery Method Room Air Allergies/Meds Allergies & Medications Allergies Iodinated Contrast Media Allergy (Severe, Verified 02/27/25 09:36) Difficulty Breathing Medication Reconciliation budesonide-formoterol HFA 160 mcg-4.5 mcg/actuation aerosol inhaler 2 puff inhalation BID 30 days #10.2 grams 10/11/24 [Rx Confirmed 02/27/25] MA Intake Visit Data Collection New Patient or Established: Established Patient (seen at [facility] within 3 years) Seen by Clinical Staff ONLY (RN/MA): No Pain Present Currently: No Pain scale:: 0 Pain Scale Used: [employer] W[employer]y Administrator Required: No PCP or OBGYN visit in last 3 months: No Hx Now: No Do You Feel Safe at Home: Yes Authorities Contacted: N/A Smoking Status Smoking Status: Never smoker Immunization / Flu Flu Vaccine in the Last 12 Months: No Flu Vaccine Exclusion Criteria: No Exclusion Criteria Past Medical History Past Medical History NEUROLOGIC: Positive Neurological Disorders and Seizures (3 yrs ago) CARDIAC: Positive Cardiac Disorders, Myocardial Infarction (2 years ago), Atherosclerotic Heart Disease and Hypertension; Negative Cardiac Arrhythmia, Atrial Fibrillation, Angina, Heart Murmur, Coronary Artery Disease, Peripheral Vascular Disease, Hypercholesterolemia, Aneurysm, Congestive Heart Failure, Congenital Heart Disease, Valvular Heart Disease, Rheumatic Fever, Cardiomyopathy, Edema, Pericarditis, Cellulitis, Deep Vein Thrombosis, Hypotension or Varicose Veins RESPIRATORY: Positive Asthma; Negative Chronic Obstructive Pulmonary Disease (COPD) GASTROINTESTINAL: Negative Gastrointestinal Disorders GENITOURINARY: Negative Genitourinary Disorders or Renal Disease ENT: Negative Cataracts, Glaucoma, Blind, Retinal Detachment, Macular Degeneration, Ear Infection, Deafness or Eye Prosthesis ENDOCRINE: Negative Endocrine Disorders, Diabetes Mellitus Type 1, Diabetes Mellitus Type 2, Hypoglycemia, Hayder's Syndrome, Octaviano's Disease, Hyperthyroidism, Hypothyroidism, Parathyroid Disease, Pituitary Disease, Systemic Lupus Erythematosus, Syndrome of Inappropriate Antidiuretic Hormone (SIADH), Adrenal Disease or Graves' Disease HEMATOLOGIC: Negative Blood Disorders or Sickle Cell Disease OTHER HISTORY: Negative Autoimmune Disease, Blood Transfusions, Blood Transfusion Reaction, Anesthesia Reactions or Cancer Family History FAMILY HISTORY: Positive Family Cardiac Disorders (mother had HI); Negative Family Psychiatric Problems, Family Respiratory Disorders, Family Gastrointestinal Problems, Family Cancer, Family Surgery or Family Anesthesia Reaction Surgical History SURGICAL: Negative Pacemaker, Abdominal Surgery, Gastric Bypass Surgery, Gastrostomy, Bowel Surgery, Nephrectomy, Joint Replacement, Neurologic Surgery or Vasectomy Social History SMOKING STATUS: Smoking status: Never smoker ALCOHOL: Alcohol Intake: Former HOUSING: Housing: House LIVES WITH: Lives With: Family Patient Portal Questionaires Social History Living Situation History Housing: House Tobacco History Smoking Status: Never smoker Alcohol History Alcohol Intake: Former Domestic Abuse History Do You Feel Safe at Home: Yes Review of Systems Report any current symptoms Only answer those that you have currently: Past Medical History Past Medical History Have you ever been diagnosed with any of the following: Neurological Problems Seizures: Yes (3 yrs ago) Cardiology Problems Myocardial Infarction: Yes (2 years ago) Cardiac Arrhythmia: No Atrial Fibrillation: No Angina: No Heart Murmur: No Coronary Artery Disease: No Atherosclerotic Heart Disease: Yes Peripheral Vascular Disease: No Hypercholesterolemia: No Aneurysm: No Congestive Heart Failure: No Congenital Heart Disease: No Valvular Heart Disease: No Rheumatic Fever: No Cardiomyopathy: No Edema: No Pericarditis: No Cellulitis: No Deep Vein Thrombosis: No Hypertension: Yes Hypotension: No Varicose Veins: No Respiratory Problems Chronic Obstructive Pulmonary Disease (COPD): No Asthma: Yes Genital/Urinary Problems Renal Disease: No Head,Eye,Nose,Throat Problems Cataracts: No Glaucoma: No Blind: No Retinal Detachment: No Macular Degeneration: No Chronic Ear Infections: No Deafness: No Eye Prosthesis: No Endocrine Problems Diabetes Mellitus Type 1: No Diabetes Mellitus Type 2: No Hypoglycemia: No Mccalla's Syndrome: No Drew's Disease: No Hyperthyroidism: No Hypothyroidism: No Parathyroid Disease: No Pituitary Disease: No Systemic Lupus Erythematosus: No Syndrome of Inappropriate Antidiuretic Hormone: No Adrenal Disease: No Graves' Disease: No Blood Problems Sickle Cell Disease: No Other Problems Autoimmune Disease: No Blood Transfusions: No Blood Transfusion Reaction: No Anesthesia Reactions: No Cancer: No Surgical History Pacemaker: No History of Present Illness HPI Narrative The patient is a 44-year-old male with a past medical history of myocardial infarction status post stent, 1 episode of seizure in the past and asthma, hx of pancreatitis. Here for TB screen. 02/27/2025 Here for a TB test. 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 Never had a TB test before. No risk for TB exposure. Denies fever, chills, headaches, chest pain, sob, cough, GI or urinary symptoms. Plan: PPD injection to left arm to be read 48 hours from 02/27/25 9:50AM. Patient instructed to keep area clean and dry. Return for read on Tuesday03/01/25. Review of Systems Review of Systems Narrative Review of Systems: 12 point system review negative except for above mentioned. Assessment & Plan Diagnosis / Problem List (1) Encounter for screening for respiratory tuberculosis: Status: Acute Assessment & Plan: As stated in HPI, here for TB screen for new job. Asymptomatic, no TB exposure, no previous positive TB screen. Case was discussed with attending physician and senior resident. DO MELISSA Conner This document was transcribed using voice recognition technology. Minor inaccuracies may be present. Plan: ? PPD injection into left arm ? Return to office in 48 hours Orders: Orders tuberculin PPD 5 unit/0.1 mL(dose) intradermal inj soln Today Z11.1 - Encounter for screening for respiratory tuberculosis Office Procedures [facility] Level of Care Nursing/Assessment Patient Status: Established Patient Nursing Assessment/Reassessment: Medication Reconciliation, Update PMH in EMR and Vital Signs Coordination of Care: Complex Care and Chronic Disease 1-5, Consent,records obtained, informed consent, Education Simp Pt/Fam and Staff clarify orders Established Patient Charge Established Patient Point Assignment: 85 Established Patient Point Charge: Level 3 (80-115)
[2025-02-27 09:36] VITALS: BP 143/91; PULSE 84; RESP 18; TEMP 36.8; O2SAT 98; BMI 28.3
== END 2025-02-27 10:13 | disposition home or self-care (01) ==
LOC: HODAHC 09:01
PROVIDERS: Supervising Provider Internal Medicine
DX: Z11.1 Encounter for screening for respiratory tuberculosis (principal)
CPT/HCPCS: 90714; 99213; G0463